=== PATIENT | male | born 1930 | race Caucasian/White ===

== ENCOUNTER 2016-06-25 09:28 | Emergency (ER) | payer MEDICARE, BC ==
[2016-06-25 09:42] VITALS: BP 123/63
--- NOTE | 2016-06-25 09:59 | UC ---
Abdominal Pain Male HPI - HPI Summary HPI Summary: 3 DAYS OF LOWER ABDOMINAL PAIN LLQ>RLQ. NO NAUSEA, NO DIARRHEA. NORMAL BMs. NO BLOOD PER RECTUM. NO FEVER. APPETITE HAS BEEN DECREASED BUT TAKING FLUIDS WELL. - History of Current Complaint Chief Complaint: UCAbdominalPain Stated Complaint: LT ABDOMEN PAIN Time Seen by Provider: 06/25/16 09:46 Hx Obtained From: Patient Onset/Duration: Sudden Onset, Lasting Days, Still Present Timing: Constant Severity Initially: Moderate Severity Currently: Moderate Pain Intensity: 4 Pain Scale Used: 0-10 Numeric Location: Other - LOWER ABDOMEN LLQ>RLQ Radiates: No Character: Aching, Sharp Aggravating Factor(s):: Nothing Alleviating Factor(s): Nothing Associated Signs And Symptoms: Positive: Negative - Allergies/Home Medications Allergies/Adverse Reactions: Allergies Allergy/AdvReac Type Severity Reaction Status Date / Time Sulfa Antibiotics Allergy Severe Swelling Verified 01/04/16 15:09 PMH/Surg Hx/FS Hx/Imm Hx Endocrine History Of: Denies: Diabetes, Thyroid Disease Cardiovascular History Of: Reports: Cardiac Disorders - bypass, CHF, Congestive Heart Failure - Has resolved with aortic valve repair Denies: Hypertension Respiratory History Of: Denies: COPD, Asthma GI/ History Of: Denies: Ulcer, Renal Disease Neurological History Of: Reports: TIA - 20 years ago - Surgical History Surgical History: Yes Surgery Procedure, Year, and Place: 1997 Open heart aortic valve repair - Family History Known Family History: Negative: Cardiac Disease, Hypertension, Diabetes - Social History Alcohol Use: None Substance Use Type: None Smoking Status (MU): Former Smoker Type: Cigarettes When Did the Patient Quit Smoking/Using Tobacco: 1970s - Immunization History Most Recent Influenza Vaccination: Not this season, - Most Recent Tetanus Shot: UNK Most Recent Pneumonia Vaccination: Has had, UNK year Review of Systems Constitutional: Negative Respiratory: Negative Cardiovascular: Negative Gastrointestinal: Abdominal Pain Genitourinary: Negative All Other Systems Reviewed And Are Negative: Yes Physical Exam Triage Information Reviewed: Yes Appearance: Well-Appearing, Pain Distress - MILD, Thin Vital Signs: Initial Vital Signs Temp 98.7 F 06/25/16 09:34 Pulse 107 06/25/16 09:34 Resp 20 06/25/16 09:34 BP 123/63 06/25/16 09:34 Pulse Ox 99 01/18/17 09:34 Vital Signs Reviewed: Yes Eyes: Positive: Conjunctiva Clear ENT: Positive: Hearing grossly normal Neck: Positive: Supple Respiratory Exam: Normal Cardiovascular: Positive: Tachycardia - IRREGULAR Abdomen Description: Positive: Soft, Guarding - VOLUNTARY, Other: - TTP LOWER ABDOMEN LLQ>RLQ. Negative: Distended Bowel Sounds: Positive: Present Musculoskeletal: Positive: No Edema Neurological: Positive: Alert Psychological: Positive: Normal Response To Family, Age Appropriate Behavior Skin: Negative: rashes Abd Pain Male Course/Dx - Course Course Of Treatment: PT STATES IRREGULAR HEART BEAT IS NOT NEW AND IS FOLLOWED BY DR. PAVON. - Differential Dx/Clinical Impression Provider Diagnoses: LLQ PAIN - Physician Notification/Consults Discussed Patient Care With: DONAVON FRENCH Time Discussed With Above Provider: 10:02 Instructed by Provider To: Transfer - [place] [facility] [place] [facility] Discharge - Discharge Plan Condition: Stable Disposition: TRANS HIGHER LVL OF CARE FAC Referrals: Gadiel Pavon MD [Primary Care Provider] -
== END 2016-06-25 10:00 | disposition short-term general hospital (02) ==
LOC: UCEAST 09:28
DX: R10.32 Left lower quadrant pain (principal); Z88.2 Allergy status to sulfonamides; Z87.891 Personal history of nicotine dependence
CPT/HCPCS: 99212; G0463

== ENCOUNTER 2016-06-25 10:22 | Inpatient (IN) | payer MEDICARE, BC ==
[2016-06-25 12:30] LABS: Hematocrit 39 % (42-52); Hemoglobin 12.7 g/dl (14.0-18.0); Mean Corpuscular HGB Conc 33 g/dl (31-36); Mean Corpuscular Hemoglobin 28 pg (27-31); Mean Corpuscular Volume 86 fL (80-94); Mean Platelet Volume 9 um3 (7.4-10.4); Red Blood Count 4.47 10^6/ul (4.0-5.4); Red Cell Distribution Width 15 % (10.5-15); White Blood Count 17.2 10^3/ul (3.5-10.8)
[2016-06-25 12:43] LABS: Troponin I 0.03 ng/mL (<0.04)
[2016-06-25 12:46] LABS: ALT 9 U/L (7-52); AST 9 U/L (13-39); Albumin 3.6 g/dL (3.2-5.2); Alkaline Phosphatase 48 U/L (34-104); Amylase 28 U/L (29-103); Anion Gap 7 mmol/L (2-11); BUN/Creatinine Ratio 20.6 (8-20); Blood Urea Nitrogen 32 mg/dL (6-24); C Reactive Protein 154.93 mg/L (< 5.00); CO2 Carbon Dioxide 24 mmol/L (22-32); Calcium 9.1 mg/dL (8.6-10.3); Chloride 106 mmol/L (101-111); EGFR African American 55.2 (>60); EGFR Non-African American 42.9 (>60); Globulin 2.8 g/dL (2-4); Glucose 122 mg/dL (70-100); Lipase < 10 U/L (11.0-82.0); Potassium 3.7 mmol/L (3.5-5.0); Sodium 137 mmol/L (133-145); Total Protein 6.4 g/dL (6.4-8.9)
[2016-06-25] MEDS ORDERED: NS 0.9% 1000 ML* 1,000 ML IV ONE ×2 (12:55→15:23)
[2016-06-25 14:25] LABS: Urine Bacteria Absent (Absent); Urine Bilirubin Negative (Negative); Urine Glucose Negative (Negative); Urine Nitrite Negative (Negative)
[2016-06-25] MEDS ORDERED: Piperac/Tazob 3.375 gm in NS* 3.375 GM/100 ML BAG IVPB ONE (15:18)
--- NOTE | 2016-06-25 15:20 | RAD ---
INDICATION: LEFT lower quadrant abdominal pain. 5 days duration. COMPARISON: March 02, 2016 CT abdomen. TECHNIQUE: Multidetector CT images were obtained from the lung bases to the ischial tuberosities. Evaluation of the viscera is limited without IV contrast. Multiplanar reformation. REPORT: Moderate LEFT greater than RIGHT dependent basilar atelectasis. Small dependent RIGHT pleural effusion. Moderate sliding-type hiatal hernia. Pectus excavatum deformity. 2.5 x 1.9 cm sharply circumscribed water density cyst at the dome of the LEFT hepatic lobe without change. Additional unchanged hepatic cyst at the caudal margin of the RIGHT hepatic lobe. No CT abnormality of the gallbladder, pancreas, spleen. Aside from the hiatal hernia the upper GI is unremarkable. Enteric contrast extends to the distal sigmoid colon. Severe colonic diverticulosis. Moderately severe neural thickening at the proximal sigmoid colon with significant perienteric inflammatory change including foci of extra enteric gas at the anterior LEFT lower quadrant and a loculated gas and fluid collection at the LEFT para midline anterior LEFT lower quadrant reference axial images centered at 66 and coronal images 21-28 of 88. Associated immediately superior adjacent approximate 10 cm length small bowel mural thickening; reference coronal reformatted images 24-28. While prominent in size and infra cecal appendix is partially opacified with enteric contrast and without evidence for acute inflammatory change. Minimal LEFT lower quadrant ascites. Negative for hernias. Normal adrenal glands. 1 mm nonobstructing stone lower pole LEFT kidney. No suspicious renal lesions or hydronephrosis. Unremarkable nondilated ureters and urinary bladder. Phleboliths noted adjacent to the distal ureters. Prominent prostate with coarse calcification. Grossly symmetric seminal vesicles. Negative for lymphadenopathy. Calcific atherosclerotic plaque of ectatic abdominal aorta without aneurysm by size criteria. Polyarticular degenerative arthropathy. No suspicious focal osseous lesions evident. IMPRESSION: The constellation of findings is most consistent with acute sigmoid diverticulitis with perforation and early perienteric abscess as well as associated reactive inflammation of an adjacent small bowel loop. No resulting bowel obstruction. Follow-up after therapy warranted to assess for resolution of the small bowel mural thickening and exclude an underlying colonic or small bowel neoplastic lesion. Results discussed with Dr. Rizvi 06/25/2016 3:16 PM EST
--- NOTE | 2016-06-25 15:46 | ED ---
Garrett Asencio Anna, scribed for Armando Rizvi MD on 06/25/16 at 1215 . Abdominal Pain/Male - HPI Summary HPI Summary: Patient is an 86 y/o male coming to [facility] presenting with intermittent, left lower abdominal pain that began three days ago at 17:00. He describes the severity of the pain as 4/10. Denies n/v/d, fever, chills. He has had some constipation and has been taking Metamucil for that. The pain is exacerbated by movement. In February he had blood in his GI tract. He denies blood thinners except Aspirin. - History of Current Complaint Chief Complaint: EDAbdPain Stated Complaint: ABD PAIN Time Seen by Provider: 06/25/16 10:28 Hx Obtained From: Patient Onset/Duration: Lasting Days, Still Present Timing: Intermittent Severity Initially: Moderate Severity Currently: Moderate Pain Intensity: 4 Pain Scale Used: 0-10 Numeric - Allergies/Home Medications Allergies/Adverse Reactions: Allergies Allergy/AdvReac Type Severity Reaction Status Date / Time Sulfa Antibiotics Allergy Severe Swelling Verified 06/25/16 10:27 Home Medications: Home Medications Calcium Carbonate-Vitamin D [Calcium 600+D] 1 tab PO DAILY 06/25/16 [History Confirmed 06/25/16] Furosemide TAB* [Lasix TAB*] 20 mg PO EVERY OTHER DAY 06/25/16 [History Confirmed 06/25/16] Indomethacin CAP* [Indocin CAP*] 50 mg PO BID PRN 06/25/16 [History Confirmed ] Pravastatin (NF) [Pravachol (NF)] 40 mg PO BEDTIME 06/25/16 [History Confirmed 06/25/16] PMH/Surg Hx/FS Hx/Imm Hx Endocrine/Hematology History: Denies: Hx Diabetes, Hx Thyroid Disease Cardiovascular History: Reports: Hx Congestive Heart Failure - Has resolved with aortic valve repair, Hx Coronary Artery Disease, Hx Hypotension, Hx Valvular Heart Disease, Other Cardiovascular Problems/Disorders - Open heart surgery for aortic valve repair Denies: Hx Hypertension Respiratory History: Denies: Hx Asthma, Hx Chronic Obstructive Pulmonary Disease (COPD) GI History: Reports: Hx Gastroesophageal Reflux Disease, Other GI Disorders - Denis's esophagus, 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 Denies: Hx Ulcer History: Reports: Hx Benign Prostatic Hyperplasia Denies: Hx Dialysis, Hx Renal Disease Sensory History: Reports: Hx Contacts or Glasses, Hx Hearing Aid, Hx Hearing Problem Opthamlomology History: Reports: Hx Contacts or Glasses Neurological History: Reports: Hx Transient Ischemic Attacks (TIA) - 20 years ago - Surgical History Surgery Procedure, Year, and Place: 1997 Open heart aortic valve repair Hx Anesthesia Reactions: No Infectious Disease History: No Infectious Disease History: Reports: Hx Shingles Denies: Hx Hepatitis, Hx Human Immunodeficiency Virus (HIV), History Other Infectious Disease, Traveled Outside the [place] in Last 30 Days - Family History Known Family History: Negative: Cardiac Disease, Hypertension, Diabetes - Social History Occupation: Retired Lives: With Family Alcohol Use: None Substance Use Type: Reports: None Smoking Status (MU): Former Smoker Type: Cigarettes Review of Systems Positive: Abdominal Pain Positive: other - constipation All Other Systems Reviewed And Are Negative: Yes Physical Exam - Summary Physical Exam Summary: VITAL SIGNS: Reviewed. GENERAL: Patient is a well developed and nourished male who is lying comfortable in the stretcher. Patient is not in any acute respiratory distress. HEAD AND FACE: Normocephalic and atraumatic. EYES: PERRLA, EOMI x 2, No injected conjunctiva. EARS: Hearing grossly intact. Ear canals and tympanic membranes are WNL. MOUTH: Dry oral mucosa. NECK: Supple, trachea is midline, no adenopathy, no JVD. CHEST: Symmetric, no tenderness at palpation LUNGS: Clear to auscultation bilaterally. No wheezing or crackles. CVS: RRR,, S1 and S2 present, no murmurs or gallops appreciated. ABDOMEN: Soft, positive RLQ tenderness. No signs of distention. Positive bowel sounds. No rebound no guarding, and no masses palpated. No abdominal bruit or pulsations. EXTREMITIES: FROM in all major joints, no edema, no cyanosis or clubbing. NEURO: Alert and oriented x 3. No acute neurological deficits. Speech is normal. SKIN: Dry and warm Vital Signs On Initial Exam: Initial Vitals Temp Pulse Resp BP Pulse Ox 98.6 F 105 16 111/59 98 06/25/16 10:27 06/25/16 10:27 06/25/16 10:27 06/25/16 10:27 06/25/16 10:27 Diagnostics - Vital Signs Vital Signs Temp Pulse Resp BP Pulse Ox 06/25/16 10:27 98.6 F 105 16 111/59 98 - Laboratory Lab Results: Lab Results 06/25/16 Range/Units 11:25 WBC 17.2 H (3.5-10.8) 10^3/ul RBC 4.47 (4.0-5.4) 10^6/ul Hgb 12.7 L (14.0-18.0) g/dl Hct 39 L (42-52) % MCV 86 (80-94) fL MCH 28 (27-31) pg MCHC 33 (31-36) g/dl RDW 15 (10.5-15) % Plt Count 168 (150-450) 10^3/ul MPV 9 (7.4-10.4) um3 Neut % (Auto) 89.5 H (38-83) % Lymph % (Auto) 3.6 L (25-47) % [place] % (Auto) 6.5 (1-9) % Eos % (Auto) 0.1 (0-6) % Baso % (Auto) 0.3 (0-2) % Absolute Neuts (auto) 15.4 H (1.5-7.7) 10^3/ul Absolute Lymphs (auto) 0.6 L (1.0-4.8) 10^3/ul Absolute Monos (auto) 1.1 H (0-0.8) 10^3/ul Absolute Eos (auto) 0 (0-0.6) 10^3/ul Absolute Basos (auto) 0.1 (0-0.2) 10^3/ul Absolute Nucleated RBC 0 10^3/ul Nucleated RBC % 0 Result Diagrams: 06/25/16 11:25 06/25/16 11:25 Lab Statement: Any lab studies that have been ordered have been reviewed, and results considered in the medical decision making process. - CT CT abd/pel CT Interpretation: Positive (See Comments) CT Interpretation Completed By: Radiologist - IMPRESSION: The constellation of findings is most consistent with acute sigmoid diverticulitis with perforation and early perienteric abscess as well as associated reactive inflammation of an adjacent small bowel loop. No resulting bowel obstruction. Follow-up after therapy warranted to assess for resolution of the small bowel mural thickening and exclude an underlying colonic or small bowel neoplastic lesion. Results discussed with Dr. Rizvi 06/25/2016 3:16 PM EST - EKG 12:18 Cardiac Rate: NL - 99 bpm EKG Rhythm: Sinus Rhythm EKG Interpretation: No S/T elevation Abdominal Pain Fem Course/Dx - Course Assessment/Plan: Patient is an 86 y/o male coming to [facility] presenting with intermittent, left lower abdominal pain that began three days ago at 17:00. He describes the severity of the pain as 4/10. Denies n/v/d, fever, chills. He has had some constipation and has been taking Metamucil for that. The pain is exacerbated by movement. In February he had blood in his GI tract. He denies blood thinners except Aspirin. Blood work shows a WBCs of 17.2, chronic anemia , acute on chronic renal failure and increased CRP. Initially he was given IV fluid since he appears to be dry. Abdominal and pelvic CT impression: IMPRESSION: The constellation of findings is most consistent with acute sigmoid. diverticulitis with perforation and early perinephric abscess as well as associated. reactive inflammation of an adjacent small bowel loop. No resulting bowel obstruction. Follow-up after therapy warranted to assess for resolution of the small bowel mural thickening and exclude an underlying colonic or small bowel neoplastic lesion. In the ED course he was given approximately 2 liter of fluids. He was started in Zosyn. I discussed the case with Dr. Hawkins from surgery and he will consult for the patient. He also recommends admission to the hospitalist and contact IR for a possible percutaneous drainage of the abscess. I spoke with Dr. Clinton form Radiology and he will consult with IR . I discuss my physical exam, findings and test results with Dr. Anderson from the hospitalist services and she agrees to admit patient to his services. Patient is hemodynamically stable alert and oriented x 3. - Diagnoses Differential Diagnosis/HQI/PQRI: Bowel Obstruction, Constipation, Diverticulitis , Renal Colic, Urinary Tract Infection Provider Diagnoses: Diverticulitis of intestine with perforation and abscess - Provider Notifications Discussed Care Of Patient With: Dr. Boswell (radiologist) at 15:16. Patient has perforated diverticulitis with an abscess. Dr. Hawkins (surgeon) at 15:21. Dr. Hawkins will consult and wants to talk Dr. Boswell to see about drainage. Discharge - Discharge Plan Condition: Stable Disposition: ADMITTED TO [facility] Referrals: Gadiel Jennings MD [Primary Care Provider] - The documentation as recorded by the Garrett welsh Anna accurately reflects the service I personally performed and the decisions made by me, Armando Rizvi MD.
[2016-06-25] MEDS ORDERED: Morphine INJ* 2 MG/ML 1 ML CARPUJECT IV PRN (16:52)
[2016-06-25] MEDS: oxyCODONE/Acetamin 5/325 MG* TAB PO PRN (19:51)
--- NOTE | 2016-06-25 20:22 | CONS ---
CONSULTATION REPORT: DATE OF CONSULT: 06/25/16 REFERRING PROVIDER: DONAVON Peters, hospitalist, and Dr. Rizvi, emergency room physician. LOCATION: The patient was seen in the emergency room at [facility]. CHIEF COMPLAINT: Left lower quadrant abdominal pain. HISTORY OF PRESENT ILLNESS: Mr. John German is a very pleasant 86-year-old gentleman, who is a resident of [facility] who since Thursday has been having worsening left lower quadrant abdominal discomfort. He has been getting around well, has had somewhat of a poor appetite, but keeping liquids down. He has had no nausea, vomiting, fever, shakes, or chills. He had some bowel movements and he has also been urinating. He was not able to get a nurse practitioner visit until tomorrow, but the pain worsened and he had initially gone to [facility] today, was referred to the emergency room after being seen there for further care. In the emergency room, he was noted to be afebrile. Did have heart rate slightly over 100, but was hemodynamically stable, awake, alert, and in no apparent distress. He was noted to have tenderness in the left lower quadrant but no generalized peritonitis and there was fullness as well in this area. Laboratory workup included white blood cell count of 17,000 with a slight left shift. BUN and creatinine were 32 and 1.5, but he had a lactic acid 1.1 with a C- reactive protein of 154. He did undergo a CT scan of the abdomen and pelvis. I have reviewed these images and this has also been discussed with Dr. Armando Boswell from Radiology. This shows multiple diverticula throughout the entire colon, but mainly in the sigmoid and distal descending colon. There are findings consistent with sigmoid diverticulitis with what appears to be most likely a contained perforation with abscess, which is anterior just underneath the abdominal wall. There is no what appears to be free extraluminal air, significant amount of free fluid, or other acute findings other than a hepatic cyst. The patient is now being admitted to the hospitalist service and started on IV antibiotics. Surgical consultation was obtained. PAST MEDICAL HISTORY: 1. Coronary artery disease. 2. Recent gastrointestinal bleeding; this was presumed to be diverticula. He was admitted in January to [facility] and underwent extensive workup for his. 3. Prostatism. 4. Hyperlipidemia. PAST SURGICAL HISTORY: 1. Bilateral open inguinal hernia repairs. 2. Coronary artery bypass grafting. MEDICATIONS: Medicines on admission include: 1. Calcium. 2. Pravachol 40 mg daily. 3. Hytrin 5 mg q.h.s. 4. Indomethacin. 5. Lasix 20 mg every other day. ALLERGIES: To SULFA. SOCIAL HISTORY: He lives alone at [facility]. He does drink alcohol, or tobacco. REVIEW OF SYSTEMS: Cerebrovascular: He has no dizziness or visual disturbance. Cardiovascular: No chest pain, shortness of breath. Pulmonary: No wheezing or hemoptysis. GI: As per above. He was admitted in January and February and underwent extensive workup for apparently quite significant GI bleeding, which was felt to be secondary to diverticula. At that time, he received over 9 units of blood during his hospitalization. Upper endoscopy was unremarkable. He had multiple pancolonic diverticula, unknown source of bleeding. Two bleeding scans were unremarkable. He has not had bleeding since , but he has reduced the amount of aspirin that he takes, but he is not taking any further aspirin. He has never been on any blood thinners. : No urgency or hematuria. PHYSICAL EXAM: Heart rate is about 90, blood pressure 111/59, respirations 16, temperature 98.6. Generally, he is a well-developed slender male, very pleasant appears to be in no apparent distress. Awake, alert, conversive. HEENT: His sclerae are anicteric. Oral mucosa is slightly dry. Neck shows no adenopathy. Lungs: Clear to auscultation with normal respiratory effort. Heart with regular rate and rhythm without murmurs, rubs, or gallops. Abdomen: Soft and nondistended. He had diminished bowel sounds throughout but they are not high pitched or tinkling. He has well-healed bilateral left and right groin incisions from previous hernia. There is no organomegaly noted. He has tenderness with also firm fullness in the left lower quadrant of the abdomen which is tender. This does not show any peritoneal signs. He has no generalized peritonitis. He has some mild tenderness in the right lower quadrant as well. Psychiatric: He is awake, alert, and oriented x3. He has normal judgment and insight. IMPRESSION: 1. Sigmoid diverticulitis with an apparent contained perforation with what appears to be developing abscess just anterior to the descending colon, sigmoid colon junction. There is no free extraluminal air fluid and he has no signs of peritonitis. He does have a significant leukocytosis but he does not appear to be septic. 2. Recent history of gastrointestinal bleed which was apparently diverticula. No specific bleeding site was found, however, on two bleeding scans and a colonoscopy, and there was not felt to be an upper source. He has not had bleeding since January. He had alvarado-diverticula noted on the colonoscopy. 3. Coronary artery disease. 4. Congestive heart failure. 4. History of benign prostatic hypertrophy. PLAN: 1. The patient is going to be admitted to the hospitalist service. 2. He will be started on IV Zosyn. 3. We can start IV fluids and kept n.p.o. 4. We have reviewed the study with Dr. Boswell from Interventional Radiology. This appears most likely to be an abscess, which would benefit from percutaneous drainage and certainly appears to be amenable to discharge. Dr. Boswell would like to reevaluate and Dr. Boswell is going to schedule and plan this for tomorrow, most likely with CT-guided assistance and a repeat CT scan may be performed to further evaluate the location prior to deciding on abscess drainage. 5. In addition, I discussed the possible scenarios in terms of treatment and hospital stay. If this improves with percutaneous drainage and intravenous antibiotics, he could be discharged home on oral antibiotics with close followup. Certainly, if there is worsening in his physical exam, clinical situation, or develop sepsis, peritonitis, or does not respond to antibiotics and percutaneous drainage, this would require urgent/emergent operation with colon resection and most likely a colostomy. Thank you for this consultation. We will follow him closely with you. CC: [facility]; Jackelyn Goins * [id number]/[facility] #: [id number] [facility]NERS[facility]
--- NOTE | 2016-06-25 20:30 | HP ---
ADMISSION HISTORY AND PHYSICAL: DATE OF ADMISSION: 06/25/16 PRIMARY CARE PROVIDER: Dr. Gadiel Jennings. ADMITTING PROVIDER: DONAVON Mendiola SUPERVISING PHYSICIAN: Dr. Russel Anderson.* (DICTATED BY DONAVON MENDIOLA) CHIEF COMPLAINT: Abdominal pain. HISTORY OF PRESENT ILLNESS: This is an 86-year-old gentleman with a history of coronary artery disease, status post CABG as well as chronic kidney disease and BPH who presented with complaints of left lower quadrant abdominal pain for the last 3 to 4 days. He has not had any associated vomiting or diarrhea. He states that he has had normal bowel movements without blood during the time of pain. He reported pain was with motion and at rest and seemed to be worse over the last several days, which prompted him to seek emergency care. He had been afebrile at home without associated chills, some loss of appetite, but really no other complaints. The patient was admitted in February with a lower GI bleed. Colonoscopy was unrevealing and he had 2 bleeding scans done at that time that did not demonstrate a source of bleeding. He has had no further bloody bowel movements since that time. He has been maintained on aspirin at home. PAST MEDICAL HISTORY: 1. Coronary artery disease, status post CABG. 2. Stage 3 chronic kidney disease. 3. BPH. 4. Olson's esophagus. PAST SURGICAL HISTORY: CABG. HOME MEDICATIONS: 1. Calcium carbonate and vitamin D 1 tablet p.o. daily. 2. Lasix 20 mg p.o. every other day. 3. Indomethacin 50 mg p.o. b.i.d. as needed. 4. Pravastatin 40 mg p.o. at bedtime. 5. Terazosin 5 mg p.o. at bedtime. SOCIAL HISTORY: The patient [place] [facility]. He is a former smoker with approximately [id number] smoking history. Denies regular alcohol consumption. The patient is quite active at baseline. REVIEW OF SYSTEMS: As noted above in HPI. Otherwise negative. He specifically denies any chest pain or shortness of breath. No palpitations. He has no pain with exertion and his exercise tolerance is excellent. PHYSICAL EXAMINATION GENERAL: This is a very pleasant elderly male, in no acute distress, lying comfortably on a hospital stretcher. VITAL SIGNS: Temperature 98.6 degrees Fahrenheit, pulse 105 beats per minute, respiratory rate 16, oxygen saturation 98% on room air, and blood pressure 111/ 59 mmHg. HEENT: Head is normocephalic and atraumatic with moist mucous membranes. RESPIRATORY: Lungs are clear to auscultation without wheezes, crackles, or rhonchi. CARDIOVASCULAR: Heart has a regular rate and rhythm without murmurs, rubs, or gallops. ABDOMEN: Soft with bowel sounds present. He does have a palpable mass in the left lower quadrant, which is significantly tender to palpation. The remainder of his abdomen is nontender. PSYCH: The patient is alert and appropriately oriented. SKIN: Limited exam shows no concerning rashes or lesions. LABORATORY EVALUATION: CBC shows a white blood cell count of 17,200, hemoglobin of 12.7 g/dL, platelet count of 168,000. Comprehensive metabolic panel shows a normal sodium of 137 mmol/L, potassium 3.7 mmol/L, BUN of 32 with a creatinine of 1.55 and estimated GFR of 43. Random glucose 122 mg/dL. Transaminases and total bilirubin within normal limits. Troponin negative at 0.03. CRP elevated at 154. Amylase and lipase are both negative. Urinalysis is positive for protein and trace ketones. Otherwise negative. IMAGING: CT of the abdomen and pelvis shows a sigmoid diverticulitis with associated perforation and early abscess formation. EKG shows a normal sinus rhythm. ASSESSMENT AND PLAN: This is an 86-year-old gentleman with a history of chronic kidney disease, coronary artery disease, status post coronary artery bypass grafting, who presents with left lower quadrant abdominal pain, noted diverticulitis and associated perforation on CT. The patient is admitted for appropriate management. Surgeon, Dr. Noam Goncalves, is consulting. 1. Acute diverticulitis with associated perforation, but without generalized peritonitis - Dr. Noam Goncalves has seen and examined this patient. He recommends that surgical intervention is not necessary at this time. He received a dose of Zosyn in the emergency department which will be continued for him. We will plan for percutaneous drain placement of the abscess tomorrow afternoon. Of course, if the patient has any signs of clinical deterioration, the next step will be surgical intervention. There are no signs of obstruction on exam or imaging. 2. History of coronary artery disease, status post CABG - the patient is asymptomatic. There is no echocardiogram available for review. EKG is within normal limits. The patient is able to climb a flight of stairs without symptoms. No clinical signs of heart failure. 3. Chronic kidney disease: The patient is near baseline with an estimated GFR of approximately 40. 4. Benign prostatic hypertrophy - the patient is currently treated with terazosin, which will be held at this time in the presence of infection and little oral intake. We will monitor for signs of urinary obstruction and can reinitiate terazosin as tolerated. 5. Code status: The patient is a full code. 6. Healthcare proxy is listed as his daughter, Jazmine Pace. 7. DVT prophylaxis - the patient is at moderate to high risk for deep venous thrombosis and will be placed on Lovenox 40 mg subcu daily for prophylaxis, this will be held at this time in anticipation of drain placement percutaneously tomorrow and we will plan on initiating first dose tomorrow afternoon. DISPOSITION: The patient is being admitted to the inpatient status with anticipated length of stay of greater than 2 days. DONAVON MENDIOLA CC: Dr. Gadiel Jennings * [id number]/[facility] #: [id number] MTDRosita
[2016-06-25] MEDS: Atorvastatin* 10 MG TAB PO SCH (21:04)
[2016-06-25] MEDS: Piperac/Tazob 3.375 gm in NS* 3.375 GM/100 ML BAG IVPB SCH (21:06)
[2016-06-25] MEDS: Terazosin CAP* 5 MG PO SCH (22:12)
[2016-06-26] MEDS: Piperac/Tazob 3.375 gm in NS* 3.375 GM/100 ML BAG IVPB SCH ×3 (03:51→19:48)
[2016-06-26 05:31] LABS: Hematocrit 35 % (42-52); Hemoglobin 11.3 g/dl (14.0-18.0); Mean Corpuscular HGB Conc 32 g/dl (31-36); Mean Corpuscular Hemoglobin 28 pg (27-31); Mean Corpuscular Volume 88 fL (80-94); Mean Platelet Volume 8 um3 (7.4-10.4); Red Blood Count 3.98 10^6/ul (4.0-5.4); Red Cell Distribution Width 15 % (10.5-15)
[2016-06-26 05:47] LABS: Calcium 8.1 mg/dL (8.6-10.3); EGFR African American 68.9 (>60); EGFR Non-African American 53.5 (>60); Potassium 3.7 mmol/L (3.5-5.0)
[2016-06-26] MEDS: oxyCODONE/Acetamin 5/325 MG* TAB PO PRN (09:05)
[2016-06-26] MEDS ORDERED: fentaNYL* 50 MCG/ML 2 ML VIAL (100 MCG VIAL) ONE ×2 (12:43→14:16)
[2016-06-26] MEDS ORDERED: HYDROmorphone INJ* 1 MG/ML CARPUJECT SYRINGE IV SLOW PU ONE ×3 (15:15→16:00)
--- NOTE | 2016-06-26 15:18 | PN ---
Subjective Date of Service: 06/26/16 Interval History: Patient seen and examined at bedside this AM. He reports adequate pain control prior to his drain placement. He denies chest pain, SOB, n/v. His abd pain is controlled at this time. He does report concern for leg swelling, as this happened last time he was in the hospital. No significant swelling noted at this time - he states his legs "look normal." He does not like [place] stockings because they "cut into his legs too much." Family History: Unchanged from Admission Social History: Unchanged from Admission Past Medical History: Unchanged from Admission Objective Active Medications: Acetaminophen (Tylenol Tab*) 650 mg PO Q4H PRN PRN Reason: FEVER/PAIN Atorvastatin Calcium (Lipitor*) 10 mg PO BEDTIME WESLEY PRN Reason: Protocol Last Admin: 06/25/16 21:04 Dose: 10 mg Enoxaparin Sodium (Lovenox(*)) 40 mg SUBCUT Q24H [facility] Piperacillin Sod/Tazobactam Sod (Zosyn 3.375 Gm In Ns Premix*) 3.375 gm in 100 mls @ 25 mls/hr IVPB Q8H [facility] Last Admin: 06/26/16 03:51 Dose: 25 mls/hr Lactated Ringer's (Lactated Ringers 1000 Ml Bag*) 1,000 mls @ 75 mls/hr IV PER RATE [facility] Last Admin: 06/25/16 19:51 Dose: 75 mls/hr Morphine Sulfate (Morphine Inj (Syringe)*) 2 mg IV Q4H PRN PRN Reason: PAIN Oxycodone/Acetaminophen (Percocet 5/325 Tab*) 1 tab PO Q4H PRN PRN Reason: Pain Last Admin: 06/26/16 09:05 Dose: 1 tab Terazosin HCl (Hytrin Cap*) 5 mg PO BEDTIME [facility] Last Admin: 06/25/16 22:12 Dose: 5 mg Vital Signs 06/25/16 06/25/16 06/25/16 19:39 19:51 20:00 Temperature 100.4 F Pulse Rate 109 Respiratory 16 16 16 Rate Blood Pressure 103/56 (mmHg) O2 Sat by Pulse 97 Oximetry 06/25/16 06/25/16 06/25/16 20:15 21:51 23:50 Temperature 100.4 F 97.4 F Pulse Rate 109 84 Respiratory 16 16 18 Rate Blood Pressure 103/56 100/61 (mmHg) O2 Sat by Pulse 97 96 Oximetry 06/26/16 06/26/16 06/26/16 01:02 03:54 07:02 Temperature 98.3 F 98.8 F Pulse Rate 69 68 Respiratory 16 18 18 Rate Blood Pressure 99/60 105/53 (mmHg) O2 Sat by Pulse 95 95 Oximetry 06/26/16 06/26/16 06/26/16 08:00 09:05 11:05 Temperature Pulse Rate Respiratory 18 18 18 Rate Blood Pressure (mmHg) O2 Sat by Pulse Oximetry Oxygen Devices in Use Now: None Appearance: Older male patient, lying in bed, in NAD Eyes: PERRLA Ears/Nose/Mouth/Throat: Clear Oropharnyx, Mucous Membranes Moist Neck: NL Appearance and Movements; NL JVP Respiratory: Symmetrical Chest Expansion and Respiratory Effort, Clear to Auscultation Cardiovascular: NL Sounds; No Murmurs; No JVD, RRR Abdominal: NL Sounds; No Tenderness; No Distention - diffuse abdominal tenderness with palpation Extremities: No Clubbing, Cyanosis - trace LE edema Skin: No Rash or Ulcers Neurological: Alert and Oriented x 3 Lines/Tubes/Other Access: Clean, Dry and Intact Peripheral IV Nutrition: Taking PO's - clear liquids Result Diagrams: 06/26/16 05:04 06/26/16 05:04 Additional Lab and Data: Lab Results 06/25/16 Range/Units 11:25 WBC 17.2 H (3.5-10.8) 10^3/ul RBC 4.47 (4.0-5.4) 10^6/ul Hgb 12.7 L (14.0-18.0) g/dl Hct 39 L (42-52) % MCV 86 (80-94) fL MCH 28 (27-31) pg MCHC 33 (31-36) g/dl RDW 15 (10.5-15) % Plt Count 168 (150-450) 10^3/ul MPV 9 (7.4-10.4) um3 Neut % (Auto) 89.5 H (38-83) % Lymph % (Auto) 3.6 L (25-47) % [place] % (Auto) 6.5 (1-9) % Eos % (Auto) 0.1 (0-6) % Baso % (Auto) 0.3 (0-2) % Absolute Neuts (auto) 15.4 H (1.5-7.7) 10^3/ul Absolute Lymphs (auto) 0.6 L (1.0-4.8) 10^3/ul Absolute Monos (auto) 1.1 H (0-0.8) 10^3/ul Absolute Eos (auto) 0 (0-0.6) 10^3/ul Absolute Basos (auto) 0.1 (0-0.2) 10^3/ul Absolute Nucleated RBC 0 10^3/ul Nucleated RBC % 0 Microbiology and Other Data: Microbiology 06/25/16 22:20 Nasal Screen MRSA (PCR)(NOBLE) - Final Nasal Mrsa Positive Assess/Plan/Problems-Billing Assessment: Mr. German is an 86 yo male with a PMH of CAD, stage 3 CKD, BPH, and Olson's esophagus who presented to the ED on 06/25/16 with abdominal pain that was found to be secondary to diverticulitis with associated perforation and early abscess. - Patient Problems (1) Diverticulitis of colon with perforation Code(s): K57.20 - DVTRCLI OF LG INT W PERFORATION AND ABSCESS W/O BLEEDING Comment: Plan for percutaneous drain placement today Appreciate surgical input Continue Zosyn and monitor closely for decompensation (2) CAD (coronary artery disease) Code(s): I25.10 - ATHSCL HEART DISEASE OF [place] CORONARY ARTERY W/O ANG PCTRS Comment: Stable. Continue statin. (3) CKD (chronic kidney disease) stage 3, GFR 30-59 ml/min Code(s): N18.3 - CHRONIC KIDNEY DISEASE, STAGE 3 (MODERATE) Comment: Creatinine within baseline. (4) BPH (benign prostatic hyperplasia) Code(s): N40.0 - BENIGN PROSTATIC HYPERPLASIA WITHOUT LOWER URINRY TRACT SYMP Comment: Patient with difficulty urinating last evening, terazosin restarted. Closely monitor BP in the presence of acute infection. (5) DVT prophylaxis Code(s): TKG0269 - Comment: SQ Lovenox Status and Disposition: Inpatient admission. Anticipate LOS >2 days.
[2016-06-26] MEDS ORDERED: NS 0.9% 1000 ML* 2,000 ML IV ONE (15:46)
--- NOTE | 2016-06-26 16:06 | PN ---
Progress Note - Progress Note Note: Surgery Progress: S: patient seen ~ 1530, recently back from Xray for image-guided drainage of abscess. This was apparently a very uncomfortable procedure for him and at present he is c/o severe spasms of lower abd pain (worse than last night or this a.m.). Along with this he is very tachycardic and about to get an EKG and re-evaluation by the hospitalist. O: Vital Signs - 8 hr 06/26/16 06/26/16 06/26/16 09:05 11:05 15:36 Temperature Pulse Rate Respiratory 18 18 24 Rate Blood Pressure (mmHg) O2 Sat by Pulse Oximetry 06/26/16 15:39 Temperature 97.8 F Pulse Rate 144 Respiratory 26 Rate Blood Pressure 142/76 (mmHg) O2 Sat by Pulse 97 Oximetry Heart: tachy Lungs: clear Abd: +BS; percutaneous drain in place w/ scant cloudy serosang drainage; abd is soft w/ moderate tenderness in LLQ, though patient's exam is difficult as he is unable to relax. A: diverticulitis w/ abscess, now s/p perc drainage w/ increased pain and tachycardia P: cont IV Zosyn; pain medication as needed; EKG pend; frequent re-checks; possible re-scan if no improvement, or consideration of operative intervention ( Dr. Goncalves aware of current situation).
[2016-06-26] MEDS: Enoxaparin(*) 40 MG/0.4 ML SYR SUBCUT SCH (16:19)
--- NOTE | 2016-06-26 17:44 | RAD ---
INDICATION: Superficial LEFT para midline suprapubic infraumbilical early peritoneal abscess secondary to sigmoid diverticulitis documented on June 25, 2016 CT. Image guided abscess drainage requested. COMPARISON: June 25, 2016 CT. Written informed consent obtained. Timeout performed. PROCEDURE: 3 cm AP by 5 cm transverse gas and liquid containing abscess collection identified in the LEFT paramedian supravesicular anterior pelvis with mild interval enlargement compared with the CT of one day prior. The collection is bordered by the inflamed sigmoid colon LEFT lateral and a secondarily inflamed small bowel loop over the cephalad margin. Collection definitively identified with ultrasound based on CT correlation. Following routine aseptic skin prep the subcutaneous and skeletal muscle tissue planes superficial to the collection were anesthetized with 5 mL 1% lidocaine. Through a small skin neck a micropuncture set was introduced into the collection under ultrasound guidance. Tract dilated and wire exchanged for an .035 guidewire. Following serial dilatation a 10 [place] 25 cm pigtail drainage catheter was introduced into the abscess cavity over the guidewire. Initial scant volume of purulent liquid aspirated. Immediate subsequent CT through the region documented the catheter extending posteriorly through the fat adjacent to the sigmoid colon up to 2.5 cm posterior and medial to the deep margin of the collection. The catheter was incrementally withdrawn under CT fluoroscopy such that the final image documents the pigtail within the dominant portion of the abscess cavity. 20 mL purulent beige pus aspirated. The catheter was tethered to the skin with a suture and connected to a gravity drainage bag. Post procedure CT images document the pigtail catheter in expected location with significant decompression of the abscess cavity. Reference axial images 24-27 of 54 a punctate focus of extra enteric gas along with a anterolateral to posterior medial faint mildly hyperdense tract are identified corresponding with the course of the catheter through the pelvic fat prior to final repositioning as described above. No postprocedure soft tissue plane hematoma or peritoneal hemorrhage evident. The patient had significant discomfort on palpation prior to initiation of the invasive procedure and required IV analgesics during and after the procedure due to pain as documented in the nursing record. Additionally the patient became tachycardic during the procedure. Aspirated abscess contents sent to the lab for analysis. Results of procedure and need for analgesic therapy discussed with AMADOR Juárez from the hospitalist service. After approximate one hour of observation the patient was discharged from the imaging department to the hospitalist service. IMPRESSION: Successful CT and ultrasound guided anterior LEFT lower quadrant peritoneal abscess pigtail catheter drainage.
[2016-06-26] MEDS: Atorvastatin* 10 MG TAB PO SCH (20:41)
[2016-06-26] MEDS: Terazosin CAP* 5 MG PO SCH (20:41)
[2016-06-27] MEDS: Piperac/Tazob 3.375 gm in NS* 3.375 GM/100 ML BAG IVPB SCH ×3 (03:26→21:25)
[2016-06-27 05:36] LABS: Hematocrit 35 % (42-52); Hemoglobin 11.4 g/dl (14.0-18.0); Mean Corpuscular HGB Conc 33 g/dl (31-36); Mean Corpuscular Hemoglobin 28 pg (27-31); Mean Corpuscular Volume 87 fL (80-94); Mean Platelet Volume 8 um3 (7.4-10.4); Red Blood Count 4.07 10^6/ul (4.0-5.4); Red Cell Distribution Width 15 % (10.5-15); White Blood Count 11.3 10^3/ul (3.5-10.8)
[2016-06-27 05:41] LABS: Add Diff/Slide Review? Slide Review Added; Comments Flag Yes
[2016-06-27 05:45] LABS: BUN/Creatinine Ratio 16.1 (8-20); Calcium 7.9 mg/dL (8.6-10.3); EGFR African American 63.7 (>60); EGFR Non-African American 49.5 (>60); Potassium 3.7 mmol/L (3.5-5.0)
--- NOTE | 2016-06-27 10:32 | PN ---
Subjective Date of Service: 06/27/16 Interval History: Patient seen and examined at bedside. He is sitting on the edge of the bed, trying to figure out his new phone. He states his pain has been "okay" but then reports that he experiences sudden stabs of pain to his left side that come and go. He denies CP, SOB, n/v. Tolerating clear liquids. No new nursing concerns at this time. Family History: Unchanged from Admission Social History: Unchanged from Admission Past Medical History: Unchanged from Admission Objective Active Medications: Acetaminophen (Tylenol Tab*) 650 mg PO Q4H PRN PRN Reason: FEVER/PAIN Atorvastatin Calcium (Lipitor*) 10 mg PO BEDTIME [facility] PRN Reason: Protocol Last Admin: 06/26/16 20:41 Dose: 10 mg Enoxaparin Sodium (Lovenox(*)) 40 mg SUBCUT Q24H [facility] Last Admin: 06/26/16 16:19 Dose: Not Given Piperacillin Sod/Tazobactam Sod (Zosyn 3.375 Gm In Ns Premix*) 3.375 gm in 100 mls @ 25 mls/hr IVPB Q8H [facility] Last Admin: 06/27/16 03:26 Dose: 25 mls/hr Lactated Ringer's (Lactated Ringers 1000 Ml Bag*) 1,000 mls @ 100 mls/hr IV PER RATE [facility] Sodium Chloride (Ns 0.9% 500 Ml Bag*) 500 mls @ 1,000 mls/hr IV .BOLUS [facility] Morphine Sulfate (Morphine Inj (Syringe)*) 2 mg IV Q4H PRN PRN Reason: PAIN Oxycodone/Acetaminophen (Percocet 5/325 Tab*) 1 tab PO Q4H PRN PRN Reason: Pain Last Admin: 06/26/16 09:05 Dose: 1 tab Terazosin HCl (Hytrin Cap*) 5 mg PO BEDTIME [facility] Last Admin: 06/26/16 20:41 Dose: 5 mg Vital Signs 06/26/16 06/26/16 06/26/16 11:05 15:36 15:39 Temperature 97.8 F Pulse Rate 144 Respiratory 18 24 26 Rate Blood Pressure 142/76 (mmHg) O2 Sat by Pulse 97 Oximetry 06/26/16 06/26/16 06/26/16 16:36 16:38 17:36 Temperature Pulse Rate 114 Respiratory 18 18 Rate Blood Pressure (mmHg) O2 Sat by Pulse Oximetry 06/26/16 06/26/16 06/26/16 18:36 20:00 23:10 Temperature 97.8 F Pulse Rate 93 Respiratory 18 18 18 Rate Blood Pressure 95/53 (mmHg) O2 Sat by Pulse 97 Oximetry Oxygen Devices in Use Now: None Appearance: Older male patient, sitting on edge of bed, in NAD Eyes: PERRLA Ears/Nose/Mouth/Throat: Clear Oropharnyx Neck: NL Appearance and Movements; NL JVP Respiratory: Symmetrical Chest Expansion and Respiratory Effort, Clear to Auscultation Cardiovascular: NL Sounds; No Murmurs; No JVD, RRR Abdominal: - - abd soft, tender to palpation, especially in LLQ, palpable mass. Percutaneous drain in place with brownish fluid Extremities: No Clubbing, Cyanosis - trace LE edema Skin: No Rash or Ulcers Neurological: Alert and Oriented x 3 Lines/Tubes/Other Access: Clean, Dry and Intact Peripheral IV Nutrition: Taking PO's - clear liquids Result Diagrams: 06/27/16 05:18 06/27/16 05:18 Additional Lab and Data: Lab Results 06/25/16 Range/Units 11:25 WBC 17.2 H (3.5-10.8) 10^3/ul RBC 4.47 (4.0-5.4) 10^6/ul Hgb 12.7 L (14.0-18.0) g/dl Hct 39 L (42-52) % MCV 86 (80-94) fL MCH 28 (27-31) pg MCHC 33 (31-36) g/dl RDW 15 (10.5-15) % Plt Count 168 (150-450) 10^3/ul MPV 9 (7.4-10.4) um3 Neut % (Auto) 89.5 H (38-83) % Lymph % (Auto) 3.6 L (25-47) % [place] % (Auto) 6.5 (1-9) % Eos % (Auto) 0.1 (0-6) % Baso % (Auto) 0.3 (0-2) % Absolute Neuts (auto) 15.4 H (1.5-7.7) 10^3/ul Absolute Lymphs (auto) 0.6 L (1.0-4.8) 10^3/ul Absolute Monos (auto) 1.1 H (0-0.8) 10^3/ul Absolute Eos (auto) 0 (0-0.6) 10^3/ul Absolute Basos (auto) 0.1 (0-0.2) 10^3/ul Absolute Nucleated RBC 0 10^3/ul Nucleated RBC % 0 Microbiology and Other Data: Microbiology 06/25/16 22:20 Nasal Screen MRSA (PCR)(NOBLE) - Final Nasal Mrsa Positive Assess/Plan/Problems-Billing Assessment: Mr. German is an 86 yo male with a PMH of CAD, stage 3 CKD, BPH, and Olson's esophagus who presented to the ED on 06/25/16 with abdominal pain that was found to be secondary to diverticulitis with associated perforation and early abscess. - Patient Problems (1) Diverticulitis of colon with perforation Code(s): K57.20 - DVTRCLI OF LG INT W PERFORATION AND ABSCESS W/O BLEEDING Comment: S/p percutaneous drain placement 06/26 Appreciate surgical input Continue Zosyn and monitor closely for decompensation Continue IVF, pain management (2) CAD (coronary artery disease) Code(s): I25.10 - ATHSCL HEART DISEASE OF [place] CORONARY ARTERY W/O ANG PCTRS Comment: Stable. Continue statin. (3) CKD (chronic kidney disease) stage 3, GFR 30-59 ml/min Code(s): N18.3 - CHRONIC KIDNEY DISEASE, STAGE 3 (MODERATE) Comment: Mild bump in creatinine today. Suspect secondary to dehydration. Increase IVF rate, recheck BMP tomorrow. (4) BPH (benign prostatic hyperplasia) Code(s): N40.0 - BENIGN PROSTATIC HYPERPLASIA WITHOUT LOWER URINRY TRACT SYMP Comment: Patient with difficulty urinating last evening, terazosin restarted. Closely monitor BP in the presence of acute infection. (5) DVT prophylaxis Code(s): FVA4767 - Comment: SQ Lovenox Status and Disposition: Inpatient admission. Anticipate LOS >2 days.
--- NOTE | 2016-06-27 10:47 | PN ---
Progress Note - Progress Note SOAP: Subjective: Feels much better this morning-less pain and is sitting out of bed. Passing some flatus, no N/V Objective: Temp Pulse Resp BP Pulse Ox 97.8 F 93 18 95/53 97 06/26/16 23:10 06/26/16 23:10 06/26/16 23:10 06/26/16 23:10 06/26/16 23:10 LLQ drain with turbid brown fluid in bag PEX: Abd is soft and non-distended. There is tenderness in the LLQ with fullness and a mass. There is no pain in remainder of abdomen. Laboratory Last Values WBC 11.3 10^3/ul (3.5-10.8) H 06/27/16 05:18 RBC 4.07 10^6/ul (4.0-5.4) 06/27/16 05:18 Hgb 11.4 g/dl (14.0-18.0) L 06/27/16 05:18 Hct 35 % (42-52) L 06/27/16 05:18 MCV 87 fL (80-94) 06/27/16 05:18 MCH 28 pg (27-31) 06/27/16 05:18 MCHC 33 g/dl (31-36) 06/27/16 05:18 RDW 15 % (10.5-15) 06/27/16 05:18 Plt Count 164 10^3/ul (150-450) 06/27/16 05:18 MPV 8 um3 (7.4-10.4) 06/27/16 05:18 Neut % (Auto) 88.9 % (38-83) H 06/27/16 05:18 Lymph % (Auto) 3.6 % (25-47) L 06/27/16 05:18 Miller % (Auto) 6.9 % (1-9) 06/27/16 05:18 Eos % (Auto) 0 % (0-6) 06/27/16 05:18 Baso % (Auto) 0.6 % (0-2) 06/27/16 05:18 Absolute Neuts (auto) 10.1 10^3/ul (1.5-7.7) H 06/27/16 05:18 Absolute Lymphs (auto) 0.4 10^3/ul (1.0-4.8) L 06/27/16 05:18 Absolute Monos (auto) 0.8 10^3/ul (0-0.8) 06/27/16 05:18 Absolute Eos (auto) 0 10^3/ul (0-0.6) 06/27/16 05:18 Absolute Basos (auto) 0.1 10^3/ul (0-0.2) 06/27/16 05:18 Absolute Nucleated RBC 0 10^3/ul 06/27/16 05:18 Nucleated RBC % 0 06/27/16 05:18 INR (Anticoag Therapy) 1.08 (0.89-1.11) 06/26/16 05:04 APTT 30.9 seconds (26.0-36.3) 06/26/16 05:04 Sodium 137 mmol/L (133-145) 06/27/16 05:18 Potassium 3.7 mmol/L (3.5-5.0) 06/27/16 05:18 Chloride 108 mmol/L (101-111) 06/27/16 05:18 Carbon Dioxide 23 mmol/L (22-32) 06/27/16 05:18 Anion Gap 6 mmol/L (2-11) 06/27/16 05:18 BUN 22 mg/dL (6-24) 06/27/16 05:18 Creatinine 1.37 mg/dL (0.67-1.17) H 06/27/16 05:18 Est GFR ( Amer) 63.7 (>60) 06/27/16 05:18 Est GFR (Non-Af Amer) 49.5 (>60) 06/27/16 05:18 BUN/Creatinine Ratio 16.1 (8-20) 06/27/16 05:18 Glucose 133 mg/dL (70-100) H 06/27/16 05:18 Lactic Acid 1.1 mmol/L (0.5-2.0) 06/25/16 11:25 Calcium 7.9 mg/dL (8.6-10.3) L 06/27/16 05:18 Total Bilirubin 0.70 mg/dL (0.2-1.0) 06/25/16 11:25 AST 9 U/L (13-39) L 06/25/16 11:25 ALT 9 U/L (7-52) 06/25/16 11:25 Alkaline Phosphatase 48 U/L (34-104) 06/25/16 11:25 Troponin I 0.03 ng/mL (<0.04) 06/25/16 11:25 C-Reactive Protein 154.93 mg/L (< 5.00) H 06/25/16 11:25 C-React Prot High Sens 111.74 mg/L 06/26/16 05:04 Total Protein 6.4 g/dL (6.4-8.9) 06/25/16 11:25 Albumin 3.6 g/dL (3.2-5.2) 06/25/16 11:25 Globulin 2.8 g/dL (2-4) 06/25/16 11:25 Albumin/Globulin Ratio 1.3 (1-3) 06/25/16 11:25 Amylase 28 U/L (29-103) L 06/25/16 11:25 Lipase < 10 U/L (11.0-82.0) L 06/25/16 11:25 Urine Color Yellow 06/25/16 13:55 Urine Appearance Cloudy 06/25/16 13:55 Urine pH 6.0 (5-9) 06/25/16 13:55 Ur Specific [place] 1.017 (1.010-1.030) 06/25/16 13:55 Urine Protein 1+(30 mg/dl) (Negative) H 06/25/16 13:55 Urine Ketones Trace (Negative) H 06/25/16 13:55 Urine Blood Negative (Negative) 06/25/16 13:55 Urine Nitrate Negative (Negative) 06/25/16 13:55 Urine Bilirubin Negative (Negative) 06/25/16 13:55 Urine Urobilinogen Negative (Negative) 06/25/16 13:55 Ur Leukocyte Esterase Negative (Negative) 06/25/16 13:55 Urine WBC (Auto) Absent (Absent) 06/25/16 13:55 Urine RBC (Auto) Absent (Absent) 06/25/16 13:55 Urine Bacteria Absent (Absent) 06/25/16 13:55 Hyaline Casts Present (Absent) H 06/25/16 13:55 Urine Glucose Negative (Negative) 06/25/16 13:55 Assessment: Acute sigmoid diverticulitis with abscess s/p percutaneous drainage yesterday. Leukocytosis improving. No signs of peritonitis or sepsis at present Plan: Continue IV antibiotics Abscess drainage catheter in place Follow clinically-no surgical intervention at present. All discussed with patient.
[2016-06-27] MEDS ORDERED: NS 0.9% 500 ML* 500 ML IV SCH (11:00)
[2016-06-27] MEDS: Acetaminophen TAB* 325 MG PO PRN (16:29)
[2016-06-27] MEDS: Enoxaparin(*) 40 MG/0.4 ML SYR SUBCUT SCH (16:29)
[2016-06-27] MEDS: Terazosin CAP* 5 MG PO SCH (21:15)
[2016-06-27] MEDS: Atorvastatin* 10 MG TAB PO SCH (21:15)
[2016-06-28] MEDS: QUEtiapine TAB* 25 MG PO PRN (01:07)
[2016-06-28] MEDS: Piperac/Tazob 3.375 gm in NS* 3.375 GM/100 ML BAG IVPB SCH ×3 (01:47→17:26)
[2016-06-28 06:42] LABS: Hematocrit 31 % (42-52); Hemoglobin 10.2 g/dl (14.0-18.0); Mean Corpuscular HGB Conc 33 g/dl (31-36); Mean Corpuscular Hemoglobin 29 pg (27-31); Mean Corpuscular Volume 86 fL (80-94); Mean Platelet Volume 8 um3 (7.4-10.4); Red Blood Count 3.55 10^6/ul (4.0-5.4); Red Cell Distribution Width 15 % (10.5-15); White Blood Count 11.4 10^3/ul (3.5-10.8)
[2016-06-28 07:00] LABS: BUN/Creatinine Ratio 15.7 (8-20); Calcium 7.9 mg/dL (8.6-10.3); EGFR African American 69.5 (>60); Potassium 3.1 mmol/L (3.5-5.0)
--- NOTE | 2016-06-28 08:17 | PN ---
Subjective Date of Service: 06/28/16 Interval History: Patient seen and examined at bedside. He is alert and reports feeling "pretty good." Denies fever/chills, CP, SOB, n/v. Reports passing gas, tolerating clear liquids. Abd pain is intermittent and "not as bad." He does report increased fatigue today. He is open to learning drain care, in the event he needs to be discharged home with it. Family History: Unchanged from Admission Social History: Unchanged from Admission Past Medical History: Unchanged from Admission Objective Active Medications: Acetaminophen (Tylenol Tab*) 650 mg PO Q4H PRN PRN Reason: FEVER/PAIN Last Admin: 06/27/16 16:29 Dose: 650 mg Atorvastatin Calcium (Lipitor*) 10 mg PO BEDTIME [facility] PRN Reason: Protocol Last Admin: 06/27/16 21:15 Dose: 10 mg Enoxaparin Sodium (Lovenox(*)) 40 mg SUBCUT Q24H [facility] Last Admin: 06/27/16 16:29 Dose: 40 mg Sodium Chloride (Ns 0.9% 1000 Ml*) 1,000 mls @ 100 mls/hr IV PER RATE [facility] Piperacillin Sod/Tazobactam Sod (Zosyn 3.375 Gm In Ns Premix*) 3.375 gm in 100 mls @ 25 mls/hr IVPB Q8H [facility] Morphine Sulfate (Morphine Inj (Syringe)*) 2 mg IV Q4H PRN PRN Reason: PAIN Oxycodone/Acetaminophen (Percocet 5/325 Tab*) 1 tab PO Q4H PRN PRN Reason: Pain Last Admin: 06/26/16 09:05 Dose: 1 tab Potassium Chloride (Klor Con Er Tab*) 40 meq PO BID [facility] Stop: 06/28/16 21:01 Quetiapine Fumarate (Seroquel Tab*) 25 mg PO DAILY PRN PRN Reason: AGITATION Last Admin: 06/28/16 01:07 Dose: 25 mg Terazosin HCl (Hytrin Cap*) 5 mg PO BEDTIME [facility] Last Admin: 06/27/16 21:15 Dose: 5 mg Vital Signs 06/27/16 06/27/16 06/27/16 11:05 13:54 16:15 Temperature 97.4 F 98.0 F Pulse Rate 88 82 Respiratory 16 18 Rate Blood Pressure 102/60 110/49 106/61 (mmHg) O2 Sat by Pulse Oximetry 06/27/16 06/27/16 06/27/16 16:17 20:00 23:34 Temperature 98.3 F Pulse Rate 98 82 Respiratory 16 19 Rate Blood Pressure 93/54 (mmHg) O2 Sat by Pulse 97 94 Oximetry 06/28/16 07:30 Temperature 98.9 F Pulse Rate 114 Respiratory 24 Rate Blood Pressure 106/59 (mmHg) O2 Sat by Pulse 94 Oximetry Oxygen Devices in Use Now: None Appearance: Older male patient, OOB to chair, in NAD Eyes: PERRLA Ears/Nose/Mouth/Throat: Clear Oropharnyx, Mucous Membranes Moist Neck: NL Appearance and Movements; NL JVP Respiratory: Symmetrical Chest Expansion and Respiratory Effort, Clear to Auscultation Cardiovascular: NL Sounds; No Murmurs; No JVD, RRR Abdominal: - - abdomen soft, non-distender, tender to LLQ, drain to LLQ with brown fluid Extremities: No Edema Skin: No Rash or Ulcers Neurological: Alert and Oriented x 3 Lines/Tubes/Other Access: Clean, Dry and Intact Peripheral IV Nutrition: Taking PO's Result Diagrams: 06/28/16 06:17 06/28/16 06:17 Additional Lab and Data: Lab Results 06/25/16 Range/Units 11:25 WBC 17.2 H (3.5-10.8) 10^3/ul RBC 4.47 (4.0-5.4) 10^6/ul Hgb 12.7 L (14.0-18.0) g/dl Hct 39 L (42-52) % MCV 86 (80-94) fL MCH 28 (27-31) pg MCHC 33 (31-36) g/dl RDW 15 (10.5-15) % Plt Count 168 (150-450) 10^3/ul MPV 9 (7.4-10.4) um3 Neut % (Auto) 89.5 H (38-83) % Lymph % (Auto) 3.6 L (25-47) % [place] % (Auto) 6.5 (1-9) % Eos % (Auto) 0.1 (0-6) % Baso % (Auto) 0.3 (0-2) % Absolute Neuts (auto) 15.4 H (1.5-7.7) 10^3/ul Absolute Lymphs (auto) 0.6 L (1.0-4.8) 10^3/ul Absolute Monos (auto) 1.1 H (0-0.8) 10^3/ul Absolute Eos (auto) 0 (0-0.6) 10^3/ul Absolute Basos (auto) 0.1 (0-0.2) 10^3/ul Absolute Nucleated RBC 0 10^3/ul Nucleated RBC % 0 Microbiology and Other Data: Microbiology 06/25/16 22:20 Nasal Screen MRSA (PCR)(NOBLE) - Final Nasal Mrsa Positive Assess/Plan/Problems-Billing Assessment: Mr. German is an 86 yo male with a PMH of CAD, stage 3 CKD, BPH, and Olson's esophagus who presented to the ED on 06/25/16 with abdominal pain that was found to be secondary to diverticulitis with associated perforation and early abscess. - Patient Problems (1) Diverticulitis of colon with perforation Code(s): K57.20 - DVTRCLI OF LG INT W PERFORATION AND ABSCESS W/O BLEEDING Comment: S/p percutaneous drain placement 06/26, with 250 mL over last 24 hours Appreciate surgical input Continue Zosyn Continue IVF, pain management Start drain care teaching (2) CAD (coronary artery disease) Code(s): I25.10 - ATHSCL HEART DISEASE OF [place] CORONARY ARTERY W/O ANG PCTRS Comment: Stable. Continue statin. (3) CKD (chronic kidney disease) stage 3, GFR 30-59 ml/min Code(s): N18.3 - CHRONIC KIDNEY DISEASE, STAGE 3 (MODERATE) Comment: Creatinine within baseline. (4) BPH (benign prostatic hyperplasia) Code(s): N40.0 - BENIGN PROSTATIC HYPERPLASIA WITHOUT LOWER URINRY TRACT SYMP Comment: Continue terazosin. Closely monitor BP in the presence of acute infection. (5) DVT prophylaxis Code(s): OLI0852 - Comment: SQ Lovenox Status and Disposition: Inpatient admission. Discharge planning, anticipate discharge in 2-4 days.
--- NOTE | 2016-06-28 08:26 | PN ---
Progress Note - Progress Note SOAP: Subjective: Continues to feel better having some loose BM's and tolerating clear liquids Much less pain Objective: Afebrile VSS Intake & Output 06/26/16 06/27/16 06/28/16 06/29/16 06:59 06:59 06:59 06:59 Intake Total 2789 1559 4123 Output Total 100 175 975 Balance 2689 1384 3148 Weight 146 lb 9.6 oz Intake: IV Fluids 2684 719 2630 LR 598 952 6817 NS (0.9%) 20 520 IVPB 105 100 333 ABX - ZOSYN 105 100 333 Oral 0 740 1160 Output: Urine 100 175 975 Other: Estimated Void Medium # Bowel Movements 0 0 1 Estimated Stool Amount Small # Voids 100 0 2 Drain with turbid brown drainage in bag-nurse reports 250 cc in 24 hours output PEX:Comfortable Lungs are CTA Abd is soft and non-distended. The drain is in place. Mild tenderness in the LLQ without mass, rebound or guarding. Laboratory Results - last 24 hr 06/28/16 06/28/16 06:17 06:17 WBC 11.4 H RBC 3.55 L Hgb 10.2 L Hct 31 L MCV 86 MCH 29 MCHC 33 RDW 15 Plt Count 165 MPV 8 Neut % (Auto) 90.2 H Lymph % (Auto) 5.1 L [place] % (Auto) 4.0 Eos % (Auto) 0.5 Baso % (Auto) 0.2 Absolute Neuts (auto) 10.3 H Absolute Lymphs (auto) 0.6 L Absolute Monos (auto) 0.5 Absolute Eos (auto) 0.1 Absolute Basos (auto) 0 Absolute Nucleated RBC 0 Nucleated RBC % 0 Sodium 138 Potassium 3.1 L Chloride 111 Carbon Dioxide 20 L Anion Gap 7 BUN 20 Creatinine 1.27 H Est GFR ( Amer) 69.5 Est GFR (Non-Af Amer) 54.0 BUN/Creatinine Ratio 15.7 Glucose 99 Calcium 7.9 L Assessment: Sigmoid diverticulitis with abscess s/p percutaneous drainage. He is doing well and continues to feel better. Tolerating liquids and passing flatus NO signs of sepsis Plan: Continue IV antibiotics and drainage May be able to go home in several days as long as improves on oral antibiotics with drain in.
[2016-06-28] MEDS: Potassium Chlor TAB* 20 MEQ TAB.ER PO SCH ×2 (09:57→21:43)
[2016-06-28] MEDS: NS 0.9% 1000 ML* 1,000 ML IV SCH ×2 (10:08→21:43)
[2016-06-28] MEDS: Enoxaparin(*) 40 MG/0.4 ML SYR SUBCUT SCH (17:26)
[2016-06-28] MEDS: oxyCODONE/Acetamin 5/325 MG* TAB PO PRN (17:32)
[2016-06-28] MEDS ORDERED: NS 0.9% 1000 ML* 1,000 ML IV ONE (18:18)
[2016-06-28] MEDS: Terazosin CAP* 5 MG PO SCH (21:47)
[2016-06-28] MEDS: Atorvastatin* 10 MG TAB PO SCH (21:47)
[2016-06-29] MEDS: oxyCODONE/Acetamin 5/325 MG* TAB PO PRN ×4 (00:12→23:20)
[2016-06-29] MEDS: Piperac/Tazob 3.375 gm in NS* 3.375 GM/100 ML BAG IVPB SCH ×3 (02:35→18:16)
[2016-06-29 06:54] LABS: BUN/Creatinine Ratio 13.8 (8-20); EGFR African American 77.1 (>60); Potassium 3.9 mmol/L (3.5-5.0)
--- NOTE | 2016-06-29 08:45 | PN ---
Subjective Date of Service: 06/29/16 Interval History: Patient seen and examined at bedside. He is OOB to chair. He states, "I finally feel like I'm starting to get better." He does endorse pain and states, "I think it's time for another Percocet." He states the Percocet do help with his pain. He also notes the drainage is "getting less." He denies CP, SOB, n/v Family History: Unchanged from Admission Social History: Unchanged from Admission Past Medical History: Unchanged from Admission Objective Active Medications: Acetaminophen (Tylenol Tab*) 650 mg PO Q4H PRN PRN Reason: FEVER/PAIN Last Admin: 06/27/16 16:29 Dose: 650 mg Atorvastatin Calcium (Lipitor*) 10 mg PO BEDTIME [facility] PRN Reason: Protocol Last Admin: 06/28/16 21:47 Dose: 10 mg Enoxaparin Sodium (Lovenox(*)) 40 mg SUBCUT Q24H [facility] Last Admin: 06/28/16 17:26 Dose: 40 mg Sodium Chloride (Ns 0.9% 1000 Ml*) 1,000 mls @ 100 mls/hr IV PER RATE [facility] Last Admin: 06/28/16 21:43 Dose: 100 mls/hr Piperacillin Sod/Tazobactam Sod (Zosyn 3.375 Gm In Ns Premix*) 3.375 gm in 100 mls @ 25 mls/hr IVPB Q8H [facility] Last Admin: 06/29/16 02:35 Dose: 25 mls/hr Morphine Sulfate (Morphine Inj (Syringe)*) 2 mg IV Q4H PRN PRN Reason: PAIN Oxycodone/Acetaminophen (Percocet 5/325 Tab*) 1 tab PO Q4H PRN PRN Reason: Pain Last Admin: 06/29/16 00:12 Dose: 1 tab Quetiapine Fumarate (Seroquel Tab*) 25 mg PO DAILY PRN PRN Reason: AGITATION Last Admin: 06/28/16 01:07 Dose: 25 mg Terazosin HCl (Hytrin Cap*) 5 mg PO BEDTIME [facility] Last Admin: 06/28/16 21:47 Dose: 5 mg Vital Signs 06/28/16 06/28/16 06/28/16 15:30 17:32 19:32 Temperature 98.8 F Pulse Rate 95 Respiratory 18 19 16 Rate Blood Pressure 129/69 (mmHg) O2 Sat by Pulse 93 Oximetry 06/28/16 06/28/16 06/29/16 20:00 23:59 00:12 Temperature 97.5 F Pulse Rate 78 Respiratory 16 16 16 Rate Blood Pressure 127/81 (mmHg) O2 Sat by Pulse 95 Oximetry 06/29/16 02:41 Temperature Pulse Rate Respiratory 16 Rate Blood Pressure (mmHg) O2 Sat by Pulse Oximetry Oxygen Devices in Use Now: None Appearance: Older male patient, OOB to chair, in NAD Eyes: PERRLA Ears/Nose/Mouth/Throat: Clear Oropharnyx, Mucous Membranes Moist Neck: NL Appearance and Movements; NL JVP Respiratory: Symmetrical Chest Expansion and Respiratory Effort, Clear to Auscultation Cardiovascular: NL Sounds; No Murmurs; No JVD, RRR Abdominal: - - BS present, abd soft, mild tenderness to palpation in LLQ, non- distended; percutaneous drain with yellow fluid Extremities: No Edema Skin: No Rash or Ulcers Neurological: Alert and Oriented x 3 Lines/Tubes/Other Access: Clean, Dry and Intact Peripheral IV Nutrition: Taking PO's Result Diagrams: 06/28/16 06:17 06/29/16 05:59 Additional Lab and Data: Lab Results 06/25/16 Range/Units 11:25 WBC 17.2 H (3.5-10.8) 10^3/ul RBC 4.47 (4.0-5.4) 10^6/ul Hgb 12.7 L (14.0-18.0) g/dl Hct 39 L (42-52) % MCV 86 (80-94) fL MCH 28 (27-31) pg MCHC 33 (31-36) g/dl RDW 15 (10.5-15) % Plt Count 168 (150-450) 10^3/ul MPV 9 (7.4-10.4) um3 Neut % (Auto) 89.5 H (38-83) % Lymph % (Auto) 3.6 L (25-47) % [place] % (Auto) 6.5 (1-9) % Eos % (Auto) 0.1 (0-6) % Baso % (Auto) 0.3 (0-2) % Absolute Neuts (auto) 15.4 H (1.5-7.7) 10^3/ul Absolute Lymphs (auto) 0.6 L (1.0-4.8) 10^3/ul Absolute Monos (auto) 1.1 H (0-0.8) 10^3/ul Absolute Eos (auto) 0 (0-0.6) 10^3/ul Absolute Basos (auto) 0.1 (0-0.2) 10^3/ul Absolute Nucleated RBC 0 10^3/ul Nucleated RBC % 0 Microbiology and Other Data: Microbiology 06/25/16 22:20 Nasal Screen MRSA (PCR)(NOBLE) - Final Nasal Mrsa Positive Assess/Plan/Problems-Billing Assessment: Mr. German is an 86 yo male with a PMH of CAD, stage 3 CKD, BPH, and Olson's esophagus who presented to the ED on 06/25/16 with abdominal pain that was found to be secondary to diverticulitis with associated perforation and early abscess. - Patient Problems (1) Diverticulitis of colon with perforation Code(s): K57.20 - DVTRCLI OF LG INT W PERFORATION AND ABSCESS W/O BLEEDING Comment: S/p percutaneous drain placement 06/26, now draining yellowish fluid Appreciate surgical input Continue Zosyn Continue IVF, pain management Continue drain care teaching (2) CAD (coronary artery disease) Code(s): I25.10 - ATHSCL HEART DISEASE OF [place] CORONARY ARTERY W/O ANG PCTRS Comment: Stable. Continue statin. (3) CKD (chronic kidney disease) stage 3, GFR 30-59 ml/min Code(s): N18.3 - CHRONIC KIDNEY DISEASE, STAGE 3 (MODERATE) Comment: Creatinine within baseline. (4) BPH (benign prostatic hyperplasia) Code(s): N40.0 - BENIGN PROSTATIC HYPERPLASIA WITHOUT LOWER URINRY TRACT SYMP Comment: Continue terazosin. Closely monitor BP in the presence of acute infection. (5) DVT prophylaxis Code(s): [id number] - Comment: SQ Lovenox Status and Disposition: Inpatient admission. Discharge planning, anticipate discharge in 2-4 days.
[2016-06-29 10:37] LABS: Magnesium 1.8 mg/dL (1.9-2.7)
[2016-06-29] MEDS ORDERED: NS 0.9% 1000 ML* 1,000 ML IV SCH (14:41)
[2016-06-29] MEDS ORDERED: Magnesium Sulfate 1 GM IV* 1 GM/100 ML BAG IV ONE (16:39)
[2016-06-29] MEDS: Enoxaparin(*) 40 MG/0.4 ML SYR SUBCUT SCH (17:13)
[2016-06-29] MEDS: Atorvastatin* 10 MG TAB PO SCH (21:06)
[2016-06-29] MEDS: Terazosin CAP* 5 MG PO SCH (21:06)
[2016-06-29] MEDS: Nystatin OINT* 15 GM TOPICAL SCH (21:07)
[2016-06-29] MEDS: QUEtiapine TAB* 25 MG PO PRN (23:20)
[2016-06-30] MEDS: Piperac/Tazob 3.375 gm in NS* 3.375 GM/100 ML BAG IVPB SCH ×3 (01:20→17:16)
[2016-06-30 07:05] LABS: Hematocrit 34 % (42-52); Mean Corpuscular HGB Conc 33 g/dl (31-36); Mean Corpuscular Hemoglobin 28 pg (27-31); Mean Corpuscular Volume 86 fL (80-94); Mean Platelet Volume 8 um3 (7.4-10.4); Red Blood Count 3.92 10^6/ul (4.0-5.4); Red Cell Distribution Width 15 % (10.5-15); White Blood Count 13.5 10^3/ul (3.5-10.8)
[2016-06-30 07:07] LABS: Add Diff/Slide Review? Slide Review Added; Comments Flag Yes
[2016-06-30] MEDS ORDERED: Magnesium Sulfate 2 GM IV* 2 GM/50 ML BAG IVPB ONE (07:26)
[2016-06-30 07:45] LABS: Immature Granulocytes 5 % (0-9); Metamyelocytes % 1 % (0-2); Myelocytes % 4 % (0-1); Neutrophil % 80 % (38-83)
[2016-06-30 07:46] LABS: RBC Morphology Normal (Normal)
--- NOTE | 2016-06-30 08:32 | PN ---
Subjective Date of Service: 06/30/16 Interval History: Patient seen and examined at bedside. He denies fever/chills, chest pain, SOB, n /v. He reports intermittent abd pain. He states he has been observing how to care for his drain but has not yet done it himself. Tolerating clear liquids. No acute concerns from nursing at this time. Family History: Unchanged from Admission Social History: Unchanged from Admission Past Medical History: Unchanged from Admission Objective Active Medications: Acetaminophen (Tylenol Tab*) 650 mg PO Q4H PRN PRN Reason: FEVER/PAIN Last Admin: 06/27/16 16:29 Dose: 650 mg Atorvastatin Calcium (Lipitor*) 10 mg PO BEDTIME [facility] PRN Reason: Protocol Last Admin: 06/29/16 21:06 Dose: 10 mg Enoxaparin Sodium (Lovenox(*)) 40 mg SUBCUT Q24H [facility] Last Admin: 06/29/16 17:13 Dose: 40 mg Piperacillin Sod/Tazobactam Sod (Zosyn 3.375 Gm In Ns Premix*) 3.375 gm in 100 mls @ 25 mls/hr IVPB Q8H [facility] Last Admin: 06/30/16 01:20 Dose: 25 mls/hr Morphine Sulfate (Morphine Inj (Syringe)*) 2 mg IV Q4H PRN PRN Reason: PAIN Nystatin (Nystatin Oint*) 1 applic TOPICAL BID [facility] Last Admin: 06/29/16 21:07 Dose: 1 applic Oxycodone/Acetaminophen (Percocet 5/325 Tab*) 1 tab PO Q4H PRN PRN Reason: Pain Last Admin: 06/29/16 23:20 Dose: 1 tab Quetiapine Fumarate (Seroquel Tab*) 25 mg PO DAILY PRN PRN Reason: AGITATION Last Admin: 06/29/16 23:20 Dose: 25 mg Terazosin HCl (Hytrin Cap*) 5 mg PO BEDTIME [facility] Last Admin: 06/29/16 21:06 Dose: 5 mg Vital Signs 06/29/16 06/29/16 06/29/16 10:33 12:33 16:41 Temperature 97.6 F Pulse Rate 94 Respiratory 18 16 Rate Blood Pressure 148/85 (mmHg) O2 Sat by Pulse 98 Oximetry 06/29/16 06/29/16 06/29/16 18:16 20:00 20:16 Temperature Pulse Rate Respiratory 18 16 16 Rate Blood Pressure (mmHg) O2 Sat by Pulse Oximetry 06/29/16 06/30/16 06/30/16 23:20 00:23 01:00 Temperature 97.2 F Pulse Rate 59 66 Respiratory 16 16 Rate Blood Pressure 128/68 (mmHg) O2 Sat by Pulse 96 Oximetry 06/30/16 06/30/16 06/30/16 01:20 07:47 07:52 Temperature 97.5 F Pulse Rate 72 Respiratory 16 18 Rate Blood Pressure 143/81 (mmHg) O2 Sat by Pulse 96 Oximetry Oxygen Devices in Use Now: None Appearance: Older male patient, lying in bed, in NAD Eyes: PERRLA Ears/Nose/Mouth/Throat: Clear Oropharnyx, Mucous Membranes Moist Neck: NL Appearance and Movements; NL JVP Respiratory: Symmetrical Chest Expansion and Respiratory Effort, Clear to Auscultation Cardiovascular: NL Sounds; No Murmurs; No JVD, RRR Abdominal: NL Sounds; No Tenderness; No Distention - BS present, mild tenderness to palpation, percutaneous drain intact with yellow, thick fluid Extremities: No Clubbing, Cyanosis - 1+ edema Skin: No Rash or Ulcers Neurological: Alert and Oriented x 3 Lines/Tubes/Other Access: Clean, Dry and Intact Peripheral IV Nutrition: Taking PO's Result Diagrams: 06/30/16 05:50 06/29/16 05:59 Additional Lab and Data: Lab Results 06/25/16 Range/Units 11:25 WBC 17.2 H (3.5-10.8) 10^3/ul RBC 4.47 (4.0-5.4) 10^6/ul Hgb 12.7 L (14.0-18.0) g/dl Hct 39 L (42-52) % MCV 86 (80-94) fL MCH 28 (27-31) pg MCHC 33 (31-36) g/dl RDW 15 (10.5-15) % Plt Count 168 (150-450) 10^3/ul MPV 9 (7.4-10.4) um3 Neut % (Auto) 89.5 H (38-83) % Lymph % (Auto) 3.6 L (25-47) % [place] % (Auto) 6.5 (1-9) % Eos % (Auto) 0.1 (0-6) % Baso % (Auto) 0.3 (0-2) % Absolute Neuts (auto) 15.4 H (1.5-7.7) 10^3/ul Absolute Lymphs (auto) 0.6 L (1.0-4.8) 10^3/ul Absolute Monos (auto) 1.1 H (0-0.8) 10^3/ul Absolute Eos (auto) 0 (0-0.6) 10^3/ul Absolute Basos (auto) 0.1 (0-0.2) 10^3/ul Absolute Nucleated RBC 0 10^3/ul Nucleated RBC % 0 Microbiology and Other Data: Microbiology 06/25/16 22:20 Nasal Screen MRSA (PCR)(NOBLE) - Final Nasal Mrsa Positive Assess/Plan/Problems-Billing Assessment: Mr. German is an 86 yo male with a PMH of CAD, stage 3 CKD, BPH, and Olson's esophagus who presented to the ED on 06/25/16 with abdominal pain that was found to be secondary to diverticulitis with associated perforation and early abscess. - Patient Problems (1) Diverticulitis of colon with perforation Code(s): K57.20 - DVTRCLI OF LG INT W PERFORATION AND ABSCESS W/O BLEEDING Comment: S/p percutaneous drain placement 06/26, now draining thick yellow fluid Appreciate surgical input Continue Zosyn Continue IVF, pain management Continue drain care teaching (2) CAD (coronary artery disease) Code(s): I25.10 - ATHSCL HEART DISEASE OF [place] CORONARY ARTERY W/O ANG PCTRS Comment: Stable. Continue statin. (3) CKD (chronic kidney disease) stage 3, GFR 30-59 ml/min Code(s): N18.3 - CHRONIC KIDNEY DISEASE, STAGE 3 (MODERATE) Comment: Creatinine within baseline. (4) BPH (benign prostatic hyperplasia) Code(s): N40.0 - BENIGN PROSTATIC HYPERPLASIA WITHOUT LOWER URINRY TRACT SYMP Comment: Continue terazosin. Closely monitor BP in the presence of acute infection. (5) DVT prophylaxis Code(s): [id number] - Comment: SQ Lovenox Status and Disposition: Inpatient admission. Discharge planning, anticipate discharge in 1-2 days.
[2016-06-30] MEDS: Nystatin OINT* 15 GM TOPICAL SCH ×2 (09:37→20:31)
--- NOTE | 2016-06-30 11:31 | PN ---
Progress Note - Progress Note Note: Surgery Progress: S: HD and Zosyn Day #6. States that his morning was a little "rough", though denies sig abd pain, N/V. He does not have much appetite, but is also tiring of the clear liquids only. He's been passing both flatus and loose stool. He feels that he's getting weaker. O: Vital Signs - 8 hr 06/30/16 06/30/16 07:47 07:52 Temperature 97.5 F Pulse Rate 72 Respiratory 18 Rate Blood Pressure 143/81 (mmHg) O2 Sat by Pulse 96 Oximetry Intake and Output Last 24 Hours 06/28/16 06/29/16 06/30/16 07/01/16 06:59 06:59 06:59 06:59 Intake Total 4123 6315 2942 120 Output Total 975 625 675 300 Balance 3148 5690 2267 -180 Intake: IV Fluids 2630 4115 1991 LR 2110 300 NS (0.9%) 520 3815 1991 IVPB 333 165 320 ABX - ZOSYN 333 115 320 NS (0.9%) 50 Oral 1160 1980 580 120 Pigtail Drain 55 50 Output: Pigtail Drain 100 75 Urine 975 475 600 300 Irrigation 50 Other: Estimated Void Medium Medium Medium # Bowel Movements 1 0 0 Estimated Stool Amount Small # Voids 2 1 4 Gen: WN, WD in NAD Heart: reg w/ occ irreg beat Lungs: clear ant Abd: +BS; flat,nondistended; no sig tenderness; pigtail drainage: cloudy yellow w/ some particulate matter. Extr: 1-2 + edema, almost to knees bilat; no calf tenderness Labs: Laboratory Tests 06/28/16 06/29/16 06/30/16 06:17 05:59 05:50 WBC 11.4 H 13.5 H Hgb 11.0 L Neut % (Auto) 83.7 H BUN 16 Creatinine 1.16 C-Reactive Protein Pending A: acute diverticulitis, w/ perforation/abscess, s/p percutaneous drainage w/ indwelling pigtail catheter, improving overall, though WBC up a bit P: will recheck CBC 07/01; consider repeat CT if incr; will check w/ Dr. Goncalves re: diet; cont ABX (C&S reviewed)
[2016-06-30 12:33] LABS: C Reactive Protein 151.38 mg/L (< 5.00)
[2016-06-30] MEDS: oxyCODONE/Acetamin 5/325 MG* TAB PO PRN ×2 (13:37→20:36)
[2016-06-30] MEDS: Enoxaparin(*) 40 MG/0.4 ML SYR SUBCUT SCH (17:16)
[2016-06-30] MEDS: Atorvastatin* 10 MG TAB PO SCH (20:31)
[2016-06-30] MEDS: Terazosin CAP* 5 MG PO SCH (20:31)
[2016-06-30] MEDS: QUEtiapine TAB* 25 MG PO PRN (20:36)
[2016-07-01] MEDS: oxyCODONE/Acetamin 5/325 MG* TAB PO PRN ×4 (01:59→20:01)
[2016-07-01] MEDS: Piperac/Tazob 3.375 gm in NS* 3.375 GM/100 ML BAG IVPB SCH ×4 (02:00→22:14)
[2016-07-01 07:25] LABS: Hematocrit 38 % (42-52); Hemoglobin 12.2 g/dl (14.0-18.0); Mean Corpuscular HGB Conc 32 g/dl (31-36); Mean Corpuscular Hemoglobin 28 pg (27-31); Mean Corpuscular Volume 87 fL (80-94); Mean Platelet Volume 8 um3 (7.4-10.4); Red Blood Count 4.38 10^6/ul (4.0-5.4); Red Cell Distribution Width 15 % (10.5-15)
[2016-07-01 07:29] LABS: Add Diff/Slide Review? Slide Review Added; Comments Flag Yes
[2016-07-01 08:15] LABS: Eosinophils % 1 % (0-6); Immature Granulocytes 3 % (0-9); Metamyelocytes % 1 % (0-2); Myelocytes % 1 % (0-1); Neutrophil % 91 % (38-83)
[2016-07-01] MEDS: Nystatin OINT* 15 GM TOPICAL SCH ×2 (09:07→21:00)
[2016-07-01] MEDS ORDERED: Iohexol 300* (CONTRAST) 10 ML SDV IV ONE (11:24)
[2016-07-01 11:32] LABS: Albumin 2.5 g/dL (3.2-5.2); BUN/Creatinine Ratio 8.9 (8-20); C Reactive Protein 91.18 mg/L (< 5.00); Calcium 7.8 mg/dL (8.6-10.3); EGFR African American 72.1 (>60); EGFR Non-African American 56.1 (>60); Globulin 2.4 g/dL (2-4); Potassium 3.1 mmol/L (3.5-5.0); Total Bilirubin 0.6 mg/dL (0.2-1.0); Total Protein 4.9 g/dL (6.4-8.9)
--- NOTE | 2016-07-01 12:24 | RAD ---
CLINICAL HISTORY: Follow-up abscess drainage COMPARISON: June 26, 2016, June 25, 2016 TECHNIQUE: Multiple contiguous axial CT scans were obtained of the abdomen and pelvis after the administration of intravenous contrast. Coronal and sagittal multiplanar reformations are submitted for review. Oral contrast was administered. Delayed images were obtained through the abdomen FINDINGS: LUNG BASES: There are moderate bilateral pleural effusions. There is compressive atelectasis of the lung bases bilaterally. LIVER: Hepatic cysts are noted in the left lobe and along the inferior margin of the right lobe.. BILE DUCTS: There is mild ectasia of the common duct. GALLBLADDER: The gallbladder is normal, without pericholecystic inflammatory change. PANCREAS: There is mild ectasia of the pancreatic duct. There is mild pancreatic atrophy. There is no appreciable hepatic mass.. SPLEEN: Normal in size and appearance. UPPER GI TRACT: Evaluation of the gastrointestinal tract is limited by incomplete gastric distention. There is a moderate paraesophageal hiatal hernia SMALL BOWEL AND MESENTERY: The small bowel is normal in contour, course, and caliber. There is no obstruction or dilatation. COLON: There is extensive diverticulosis of the colon most pronounced along the sigmoid colon. A self locking drainage catheter is noted in the anterior abdomen along the sigmoid colon localizing to the previous location of the complex air-fluid collection. There has been interval organization of a fluid collection within the rectovesicular space, measuring approximately 4.7 x 5.6 x 4.8 cm in size. ADRENALS: Normal bilaterally. KIDNEYS: The kidneys are normal in shape, size, contour, and axis. There is no hydronephrosis or nephrolithiasis. BLADDER: The bladder is smooth in contour. PELVIC ORGANS: The prostate is diffusely enlarged. The seminal vesicles are symmetric. AORTA: There is calcific atherosclerotic disease of the abdominal aorta and its branches, without aneurysmal dilatation IVC: Unremarkable LYMPH NODES: There is no lymphadenopathy by size criteria. ABDOMINAL WALL: There is no evidence for abdominal wall hernia. BONES AND SOFT TISSUES: There is a scoliotic curvature of the spine. Degenerative changes are noted of the spine OTHER: None IMPRESSION: 1. THERE HAS BEEN INTERVAL DEVELOPMENT OF A LOCULATED FLUID COLLECTION WITHIN THE RECTOVESICULAR SPACE MEASURING APPROXIMATELY 5.6 CM IN SIZE, CONSISTENT WITH ABSCESS. 2. NASAL LOCKING DRAINAGE CATHETER IS NOTED IN THE ANTERIOR ASPECT OF THE LEFT LOWER QUADRANT, WITHOUT APPRECIABLE RESIDUAL ABSCESS IN THIS LOCATION. 3. BILATERAL PLEURAL EFFUSIONS WITH BIBASILAR ATELECTASIS.
[2016-07-01 13:38] LABS: Urine Bilirubin Negative (Negative); Urine Glucose Negative (Negative); Urine Nitrite Negative (Negative)
[2016-07-01] MEDS ORDERED: NS 0.9% 500 ML* 500 ML IV SCH (15:00)
--- NOTE | 2016-07-01 16:12 | PN ---
Subjective Date of Service: 07/01/16 Interval History: Patient seen and examined at bedside. He reports loose stools but states the pain "isn't as bad." He likes his [place] hose and feels they are helping with his LE edema. He denies CP, SOB, n/v. Family History: Unchanged from Admission Social History: Unchanged from Admission Past Medical History: Unchanged from Admission Objective Active Medications: Acetaminophen (Tylenol Tab*) 650 mg PO Q4H PRN PRN Reason: FEVER/PAIN Last Admin: 06/27/16 16:29 Dose: 650 mg Atorvastatin Calcium (Lipitor*) 10 mg PO BEDTIME WESLEY PRN Reason: Protocol Last Admin: 06/30/16 20:31 Dose: 10 mg Enoxaparin Sodium (Lovenox(*)) 40 mg SUBCUT Q24H [facility] Last Admin: 06/30/16 17:16 Dose: 40 mg Piperacillin Sod/Tazobactam Sod (Zosyn 3.375 Gm In Ns Premix*) 3.375 gm in 100 mls @ 25 mls/hr IVPB Q8H [facility] Last Admin: 07/01/16 09:47 Dose: 25 mls/hr Sodium Chloride (Ns 0.9% 1000 Ml*) 1,000 mls @ 100 mls/hr IV PER RATE WESLEY Sodium Chloride (Ns 0.9% 500 Ml Bag*) 500 mls @ 1,000 mls/hr IV .BOLUS [facility] Last Admin: 07/01/16 14:52 Dose: 1,000 mls/hr Morphine Sulfate (Morphine Inj (Syringe)*) 2 mg IV Q4H PRN PRN Reason: PAIN Nystatin (Nystatin Oint*) 1 applic TOPICAL BID [facility] Last Admin: 07/01/16 09:07 Dose: 1 applic Oxycodone/Acetaminophen (Percocet 5/325 Tab*) 1 tab PO Q4H PRN PRN Reason: Pain Last Admin: 07/01/16 14:59 Dose: 1 tab Quetiapine Fumarate (Seroquel Tab*) 25 mg PO DAILY PRN PRN Reason: AGITATION Last Admin: 06/30/16 20:36 Dose: 25 mg Terazosin HCl (Hytrin Cap*) 5 mg PO BEDTIME [facility] Last Admin: 06/30/16 20:31 Dose: 5 mg Vital Signs 0106/30/16 06/30/16 20:00 20:36 20:45 Temperature Pulse Rate 75 Respiratory 16 16 16 Rate Blood Pressure 141/73 (mmHg) O2 Sat by Pulse Oximetry 06/30/16 06/30/16 07/01/16 22:36 23:35 01:59 Temperature 97.2 F Pulse Rate 94 Respiratory 16 16 16 Rate Blood Pressure 124/71 (mmHg) O2 Sat by Pulse 98 Oximetry 07/01/16 07/01/16 07/01/16 03:59 07:42 08:00 Temperature 98.4 F Pulse Rate 106 Respiratory 16 20 Rate Blood Pressure 109/66 (mmHg) O2 Sat by Pulse 95 Oximetry 07/01/16 07/01/16 07/01/16 09:47 11:47 14:59 Temperature Pulse Rate Respiratory 20 14 14 Rate Blood Pressure (mmHg) O2 Sat by Pulse Oximetry Oxygen Devices in Use Now: None Appearance: Older gentleman, lying in bed, in NAD Eyes: PERRLA Ears/Nose/Mouth/Throat: Clear Oropharnyx, Mucous Membranes Moist Neck: NL Appearance and Movements; NL JVP Respiratory: Symmetrical Chest Expansion and Respiratory Effort, Clear to Auscultation - mildly diminished Cardiovascular: NL Sounds; No Murmurs; No JVD, RRR Abdominal: NL Sounds; No Tenderness; No Distention - mild tenderness to left abdomen with palpation, drain with yellow-brown fluid Extremities: No Clubbing, Cyanosis - +1 pedal edema Skin: No Rash or Ulcers Neurological: Alert and Oriented x 3 Lines/Tubes/Other Access: Clean, Dry and Intact Peripheral IV Nutrition: Taking PO's Result Diagrams: 07/01/16 06:18 07/01/16 11:08 Additional Lab and Data: Lab Results 06/25/16 Range/Units 11:25 WBC 17.2 H (3.5-10.8) 10^3/ul RBC 4.47 (4.0-5.4) 10^6/ul Hgb 12.7 L (14.0-18.0) g/dl Hct 39 L (42-52) % MCV 86 (80-94) fL MCH 28 (27-31) pg MCHC 33 (31-36) g/dl RDW 15 (10.5-15) % Plt Count 168 (150-450) 10^3/ul MPV 9 (7.4-10.4) um3 Neut % (Auto) 89.5 H (38-83) % Lymph % (Auto) 3.6 L (25-47) % [place] % (Auto) 6.5 (1-9) % Eos % (Auto) 0.1 (0-6) % Baso % (Auto) 0.3 (0-2) % Absolute Neuts (auto) 15.4 H (1.5-7.7) 10^3/ul Absolute Lymphs (auto) 0.6 L (1.0-4.8) 10^3/ul Absolute Monos (auto) 1.1 H (0-0.8) 10^3/ul Absolute Eos (auto) 0 (0-0.6) 10^3/ul Absolute Basos (auto) 0.1 (0-0.2) 10^3/ul Absolute Nucleated RBC 0 10^3/ul Nucleated RBC % 0 Microbiology and Other Data: Microbiology 06/25/16 22:20 Nasal Screen MRSA (PCR)(NOBLE) - Final Nasal Mrsa Positive Assess/Plan/Problems-Billing Assessment: Mr. German is an 86 yo male with a PMH of CAD, stage 3 CKD, BPH, and Olson's esophagus who presented to the ED on 06/25/16 with abdominal pain that was found to be secondary to diverticulitis with associated perforation and early abscess. - Patient Problems (1) Diverticulitis of colon with perforation Code(s): K57.20 - DVTRCLI OF LG INT W PERFORATION AND ABSCESS W/O BLEEDING Comment: S/p percutaneous drain placement 06/26 New abscess seen on CT scan, plan for 2nd percutaneous drain tomorrow Appreciate surgical input Continue Zosyn Continue IVF, pain management Continue drain care teaching (2) CAD (coronary artery disease) Code(s): I25.10 - ATHSCL HEART DISEASE OF [place] CORONARY ARTERY W/O ANG PCTRS Comment: Stable. Continue statin. (3) CKD (chronic kidney disease) stage 3, GFR 30-59 ml/min Code(s): N18.3 - CHRONIC KIDNEY DISEASE, STAGE 3 (MODERATE) Comment: Appears dehydrated, restart IVF Creatinine within baseline. (4) BPH (benign prostatic hyperplasia) Code(s): N40.0 - BENIGN PROSTATIC HYPERPLASIA WITHOUT LOWER URINRY TRACT SYMP Comment: Continue terazosin. Closely monitor BP in the presence of acute infection. (5) DVT prophylaxis Code(s): RBW7112 - Comment: Hold in anticipation of percutaneous drain placement tomorrow Resume SQ Lovenox tomorrow evening Status and Disposition: Inpatient admission. Discharge planning in progress.
[2016-07-01] MEDS: NS 0.9% 1000 ML* 1,000 ML IV SCH (16:23)
--- NOTE | 2016-07-01 16:44 | PN ---
Progress Note - Progress Note SOAP: Subjective: Patient initially seen at 0745 this morning He continues to feel well-having some loose BM's and tolerating some liquids. He only has abdominal pain when he is moving or walking Objective: Temp Pulse Resp BP Pulse Ox 98.4 F 106 14 109/66 95 07/01/16 07:42 07/01/16 07:42 07/01/16 14:59 07/01/16 07:42 07/01/16 07:42 Intake & Output 06/29/16 06/30/16 07/01/16 07/02/16 06:59 06:59 06:59 06:59 Intake Total 6315 2942 785 0 Output Total 823 662 1516 Balance 5690 2267 -1140 0 Weight 146 lb Intake: IV Fluids 4115 1991 165 ABX - ZOSYN 140 LR 300 NS (0.9%) 3815 1991 25 IVPB 165 320 140 ABX - ZOSYN 115 320 140 NS (0.9%) 50 Oral 1980 580 480 0 Pigtail Drain 55 50 Output: Abdominal Drain 75 Pigtail Drain 100 75 Urine 941 340 3854 Irrigation 50 Other: Estimated Void Medium Medium Medium Medium # Bowel Movements 0 0 0 1 Estimated Stool Amount Medium # Voids 1 4 2 2 PEX: Comfortable Abd is soft and non-distended. There are bowel sounds present throughout. Drain in place with some thin browinsh fluid in bag He has some mild tenderness in the RLQ, no generalized pain, rebound or guarding. Laboratory Last Values WBC 32.0 10^3/ul (3.5-10.8) H 07/01/16 06:18 RBC 4.38 10^6/ul (4.0-5.4) 07/01/16 06:18 Hgb 12.2 g/dl (14.0-18.0) L 07/01/16 06:18 Hct 38 % (42-52) L 07/01/16 06:18 MCV 87 fL (80-94) 07/01/16 06:18 MCH 28 pg (27-31) 07/01/16 06:18 MCHC 32 g/dl (31-36) 07/01/16 06:18 RDW 15 % (10.5-15) 07/01/16 06:18 Plt Count 281 10^3/ul (150-450) 07/01/16 06:18 MPV 8 um3 (7.4-10.4) 07/01/16 06:18 Immature Gran % (Auto) 3 % (0-9) 07/01/16 06:18 Neut % (Auto) 94.1 % (38-83) H 07/01/16 06:18 Lymph % (Auto) 1.9 % (25-47) L 07/01/16 06:18 [place] % (Auto) 3.6 % (1-9) 07/01/16 06:18 Eos % (Auto) 0.2 % (0-6) 07/01/16 06:18 Baso % (Auto) 0.2 % (0-2) 07/01/16 06:18 Absolute Neuts (auto) 30.1 10^3/ul (1.5-7.7) H 07/01/16 06:18 Absolute Lymphs (auto) 0.6 10^3/ul (1.0-4.8) L 07/01/16 06:18 Absolute Monos (auto) 1.1 10^3/ul (0-0.8) H 07/01/16 06:18 Absolute Eos (auto) 0.1 10^3/ul (0-0.6) 07/01/16 06:18 Absolute Basos (auto) 0.1 10^3/ul (0-0.2) 07/01/16 06:18 Absolute Nucleated RBC 0 10^3/ul 07/01/16 06:18 Neutrophils % 91 % (38-83) H 07/01/16 06:18 Band Neutrophils % 1 % (0-8) 07/01/16 06:18 Lymphocytes % 3 % (25-47) L 07/01/16 06:18 Monocytes % 2 % (0-13) 07/01/16 06:18 Eosinophils % 1 % (0-6) 07/01/16 06:18 Metamyelocytes % 1 % (0-2) 07/01/16 06:18 Myelocytes % 1 % (0-1) 07/01/16 06:18 Nucleated RBC % 0 07/01/16 06:18 Normal RBC Morphology Not Reportable 07/01/16 06:18 Elliptocytes 1+ 07/01/16 06:18 INR (Anticoag Therapy) 1.08 (0.89-1.11) 06/26/16 05:04 APTT 30.9 seconds (26.0-36.3) 06/26/16 05:04 Sodium 137 mmol/L (133-145) 07/01/16 11:08 Potassium 3.1 mmol/L (3.5-5.0) L 07/01/16 11:08 Chloride 110 mmol/L (101-111) 07/01/16 11:08 Carbon Dioxide 20 mmol/L (22-32) L 07/01/16 11:08 Anion Gap 7 mmol/L (2-11) 07/01/16 11:08 BUN 11 mg/dL (6-24) 07/01/16 11:08 Creatinine 1.23 mg/dL (0.67-1.17) H 07/01/16 11:08 Est GFR ( Amer) 72.1 (>60) 07/01/16 11:08 Est GFR (Non-Af Amer) 56.1 (>60) 07/01/16 11:08 BUN/Creatinine Ratio 8.9 (8-20) 07/01/16 11:08 Glucose 108 mg/dL (70-100) H 07/01/16 11:08 Lactic Acid 1.1 mmol/L (0.5-2.0) 06/25/16 11:25 Calcium 7.8 mg/dL (8.6-10.3) L 07/01/16 11:08 Magnesium 1.8 mg/dL (1.9-2.7) L 06/29/16 05:59 Total Bilirubin 0.60 mg/dL (0.2-1.0) 07/01/16 11:08 AST 18 U/L (13-39) 07/01/16 11:08 ALT 11 U/L (7-52) 07/01/16 11:08 Alkaline Phosphatase 49 U/L (34-104) 07/01/16 11:08 Troponin I 0.03 ng/mL (<0.04) 06/25/16 11:25 C-Reactive Protein 91.18 mg/L (< 5.00) H 07/01/16 11:08 C-React Prot High Sens 111.74 mg/L 06/26/16 05:04 Total Protein 4.9 g/dL (6.4-8.9) L 07/01/16 11:08 Albumin 2.5 g/dL (3.2-5.2) L 07/01/16 11:08 Globulin 2.4 g/dL (2-4) 07/01/16 11:08 Albumin/Globulin Ratio 1.0 (1-3) 07/01/16 11:08 Amylase 28 U/L (29-103) L 06/25/16 11:25 Lipase < 10 U/L (11.0-82.0) L 06/25/16 11:25 Urine Color Yellow 07/01/16 12:55 Urine Appearance Clear 07/01/16 12:55 Urine pH 5.0 (5-9) 07/01/16 12:55 Ur Specific [place] 1.042 (1.010-1.030) H 07/01/16 12:55 Urine Protein Negative (Negative) 07/01/16 12:55 Urine Ketones Trace (Negative) H 07/01/16 12:55 Urine Blood Negative (Negative) 07/01/16 12:55 Urine Nitrate Negative (Negative) 07/01/16 12:55 Urine Bilirubin Negative (Negative) 07/01/16 12:55 Urine Urobilinogen Negative (Negative) 07/01/16 12:55 Ur Leukocyte Esterase Negative (Negative) 07/01/16 12:55 Urine WBC (Auto) Absent (Absent) 06/25/16 13:55 Urine RBC (Auto) Absent (Absent) 06/25/16 13:55 Urine Bacteria Absent (Absent) 06/25/16 13:55 Hyaline Casts Present (Absent) H 06/25/16 13:55 Urine Glucose Negative (Negative) 07/01/16 12:55 Assessment: Sigmoid diverticulitis with abscess s/p percutaneous drainage Markedly elevated WBC today No evidence of sepsis or peritonitis Plan: CT repeated today show a new 5 cm pelvic abscess. Drain in good position with no residual cavity and the sigmoid diverticulitis appears to have less inflammation. Reviewed with IR (Dr. Casey) and patient--this new abscess is amenable to percutaneous drainage. At this point he has no urgent/emergent indication for surgery and I feel an attempt at drainage is the optimal route to take as this may avoid surgery and colostomy and the patient agrees Scheduled for tomorrow.
[2016-07-01] MEDS ORDERED: Potassium Chlor TAB* 20 MEQ TAB.ER PO ONE (17:14)
[2016-07-01] MEDS: KCL 10 MEQ/50 ML IVPREMIX* 10 MEQ/50 ML BAG IV SCH ×3 (18:47→23:30)
[2016-07-01] MEDS: Enoxaparin(*) 40 MG/0.4 ML SYR SUBCUT SCH (18:55)
[2016-07-01] MEDS: Atorvastatin* 10 MG TAB PO SCH (20:59)
[2016-07-01] MEDS: Terazosin CAP* 5 MG PO SCH (20:59)
[2016-07-01] MEDS ORDERED: KCL 10 MEQ/50 ML IVPREMIX* 10 MEQ/50 ML BAG ONE (23:29)
[2016-07-02] MEDS: NS 0.9% 1000 ML* 1,000 ML IV SCH ×3 (03:49→21:20)
[2016-07-02] MEDS: Piperac/Tazob 3.375 gm in NS* 3.375 GM/100 ML BAG IVPB SCH ×3 (05:06→22:23)
[2016-07-02 05:52] LABS: Hematocrit 33 % (42-52); Hemoglobin 10.9 g/dl (14.0-18.0); Mean Corpuscular HGB Conc 33 g/dl (31-36); Mean Corpuscular Hemoglobin 28 pg (27-31); Mean Corpuscular Volume 86 fL (80-94); Mean Platelet Volume 7 um3 (7.4-10.4); Red Blood Count 3.87 10^6/ul (4.0-5.4); Red Cell Distribution Width 15 % (10.5-15)
[2016-07-02 05:55] LABS: Comments Flag Yes; White Blood Count 31.1 10^3/ul (3.5-10.8)
[2016-07-02 06:07] LABS: BUN/Creatinine Ratio 9.6 (8-20); Calcium 7.6 mg/dL (8.6-10.3); EGFR African American 77.9 (>60); EGFR Non-African American 60.6 (>60); Potassium 3.1 mmol/L (3.5-5.0)
[2016-07-02] MEDS ORDERED: Naloxone* 0.4 MG/ML 1 ML VIAL ONE (09:06)
[2016-07-02] MEDS ORDERED: fentaNYL* 50 MCG/ML 2 ML VIAL (100 MCG VIAL) ONE ×2 (09:06→09:31)
[2016-07-02] MEDS: oxyCODONE/Acetamin 5/325 MG* TAB PO PRN (09:10)
[2016-07-02] MEDS: Nystatin OINT* 15 GM TOPICAL SCH ×2 (09:10→20:15)
[2016-07-02] MEDS ORDERED: Flumazenil* 0.1 MG/ML 5 ML MDV ONE (09:31)
[2016-07-02] MEDS ORDERED: Midazolam* 1 MG/ML 5 ML VIAL (5 MG) ONE (09:31)
[2016-07-02] MEDS: KCL 10 MEQ/50 ML IVPREMIX* 10 MEQ/50 ML BAG IV SCH ×4 (12:00→16:59)
[2016-07-02] MEDS ORDERED: Digoxin IV* 0.5 MG/2 ML AMP (0.25 MG/ML) IV ONE (12:00)
--- NOTE | 2016-07-02 14:20 | RAD ---
CPT II Codes: 6100F INDICATION: Right pelvic abscess likely secondary to diverticulitis. COMPARISON: Contrast-enhanced CT of the abdomen and pelvis dated July 01, 2016 PROCEDURE NOTE AND FINDINGS: The indication, alternatives therapies, benefits and risks of the procedure were explained to the patient and informed consent was obtained. The patient was brought to the CT suite and positioned in the prone position. A time out was preformed with the technologist and nursing staff. The patient was prepped and draped in the usual sterile fashion. The patient was given intravenous fentanyl and local anesthesia with 1% lidocaine. For the purpose of carefully delineating the neighboring rectosigmoid colon, the patient received approximately 300 mL of dilute rectal contrast. Using CT guidance a 10 [place] pigtail drainage catheter was inserted into the right pelvic fluid collection according to the trocar technique. Aspiration yielded approximately 20 mL of dark and partially fibrinous serous fluid. A sample was sent for laboratory analysis. The drain was secured to the skin and dressed with sterile gauze. The patient tolerated the procedure well without incident. The patient was transported to the holding area in stable condition. IMPRESSION: Uncomplicated CT guided right transgluteal pelvic abscess drain placement as described in the body of the report. Plan: 1. Follow-up laboratory analysis of sample. 2. The drain should be flushed with approximately 10 mL sterile saline every 8 hours. 3. Drainage bag to gravity.
[2016-07-02] MEDS ORDERED: Diltiazem TAB* 60 MG PO ONE (15:52)
--- NOTE | 2016-07-02 15:59 | PN ---
Subjective Date of Service: 07/02/16 Interval History: pt was seen after his IR procedure when he developed a. fib with RVR. No c/o CP or SOB. Has had no appetite Family History: Unchanged from Admission Social History: Unchanged from Admission Past Medical History: Unchanged from Admission Objective Active Medications: Acetaminophen (Tylenol Tab*) 650 mg PO Q4H PRN PRN Reason: FEVER/PAIN Last Admin: 06/27/16 16:29 Dose: 650 mg Atorvastatin Calcium (Lipitor*) 10 mg PO BEDTIME WESLEY PRN Reason: Protocol Last Admin: 07/01/16 20:59 Dose: 10 mg Diltiazem HCl (Cardizem Tab*) 60 mg PO ONCE ONE Stop: 07/02/16 15:53 Enoxaparin Sodium (Lovenox(*)) 40 mg SUBCUT Q24H [facility] Piperacillin Sod/Tazobactam Sod (Zosyn 3.375 Gm In Ns Premix*) 3.375 gm in 100 mls @ 25 mls/hr IVPB 0530,1330,2130 [facility] Last Admin: 07/02/16 14:32 Dose: 25 mls/hr Magnesium Sulfate/Dextrose (Magnesium Sulfate 1 Gm Iv*) 1 gm in 100 mls @ 200 mls/hr IV ONCE ONE Stop: 07/02/16 16:19 Sodium Chloride (Ns 0.9% 1000 Ml*) 1,000 mls @ 125 mls/hr IV PER RATE [facility] Morphine Sulfate (Morphine Inj (Syringe)*) 2 mg IV Q4H PRN PRN Reason: PAIN Nystatin (Nystatin Oint*) 1 applic TOPICAL BID [facility] Last Admin: 07/02/16 09:10 Dose: 1 applic Oxycodone/Acetaminophen (Percocet 5/325 Tab*) 1 tab PO Q4H PRN PRN Reason: Pain Last Admin: 07/02/16 09:10 Dose: 1 tab Quetiapine Fumarate (Seroquel Tab*) 25 mg PO DAILY PRN PRN Reason: AGITATION Last Admin: 06/30/16 20:36 Dose: 25 mg Terazosin HCl (Hytrin Cap*) 5 mg PO BEDTIME WES[facility] Last Admin: 07/01/16 20:59 Dose: 5 mg Vital Signs 07/01/16 07/01/16 07/01/16 16:59 20:00 20:01 Temperature Pulse Rate Respiratory 16 18 16 Rate Blood Pressure (mmHg) O2 Sat by Pulse Oximetry 07/01/16 07/01/16 07/02/16 22:01 23:48 07:22 Temperature 98.7 F 97.3 F Pulse Rate 86 89 Respiratory 16 18 Rate Blood Pressure 113/64 132/67 (mmHg) O2 Sat by Pulse 95 97 Oximetry 07/02/16 07/02/16 07/02/16 08:00 09:10 11:10 Temperature Pulse Rate Respiratory 12 12 16 Rate Blood Pressure (mmHg) O2 Sat by Pulse Oximetry 07/02/16 07/02/16 13:55 15:29 Temperature 98.2 F 97.2 F Pulse Rate 143 126 Respiratory 16 16 Rate Blood Pressure 103/69 94/53 (mmHg) O2 Sat by Pulse 98 92 Oximetry Oxygen Devices in Use Now: None Appearance: 86 yo M in NAD, aAOx3 Eyes: No Scleral Icterus, PERRLA Ears/Nose/Mouth/Throat: NL Teeth, Lips, Gums, Mucous Membranes Moist Neck: NL Appearance and Movements; NL JVP, Trachea Midline Respiratory: Symmetrical Chest Expansion and Respiratory Effort, Clear to Auscultation Cardiovascular: - - irregular, no murmur Abdominal: - - slightly disended, soft, tender mildy in lower abd, no rebound, no guarding. IR drain protruding from lower abd. Back not examined Extremities: No Clubbing, Cyanosis, - - +1 pitting pedal edema Neurological: Alert and Oriented x 3, NL Muscle Strength and Tone Result Diagrams: 07/02/16 05:18 07/02/16 05:18 Additional Lab and Data: Lab Results 06/25/16 Range/Units 11:25 WBC 17.2 H (3.5-10.8) 10^3/ul RBC 4.47 (4.0-5.4) 10^6/ul Hgb 12.7 L (14.0-18.0) g/dl Hct 39 L (42-52) % MCV 86 (80-94) fL MCH 28 (27-31) pg MCHC 33 (31-36) g/dl RDW 15 (10.5-15) % Plt Count 168 (150-450) 10^3/ul MPV 9 (7.4-10.4) um3 Neut % (Auto) 89.5 H (38-83) % Lymph % (Auto) 3.6 L (25-47) % [place] % (Auto) 6.5 (1-9) % Eos % (Auto) 0.1 (0-6) % Baso % (Auto) 0.3 (0-2) % Absolute Neuts (auto) 15.4 H (1.5-7.7) 10^3/ul Absolute Lymphs (auto) 0.6 L (1.0-4.8) 10^3/ul Absolute Monos (auto) 1.1 H (0-0.8) 10^3/ul Absolute Eos (auto) 0 (0-0.6) 10^3/ul Absolute Basos (auto) 0.1 (0-0.2) 10^3/ul Absolute Nucleated RBC 0 10^3/ul Nucleated RBC % 0 Microbiology and Other Data: Microbiology 06/25/16 22:20 Nasal Screen MRSA (PCR)(NOBLE) - Final Nasal Mrsa Positive Assess/Plan/Problems-Billing Assessment: Mr. German is an 86 yo male with a PMH of CAD, stage 3 CKD, BPH, and Olson's esophagus who presented to the ED on 06/25/16 with abdominal pain that was found to be secondary to diverticulitis with associated perforation and early abscess. - Patient Problems (1) Diverticulitis of colon with perforation Comment: S/p percutaneous drain placement 06/26 (first drain ) and on 07/02/16 second drain) Appreciate surgical input Continue Zosyn . Cx growing strep anginosus and E. Coli(obtained from first drain) Continue IVF, pain management Continue drain care teaching (2) Atrial fibrillation with rapid ventricular response Comment: Loaded with digoxin. low SBP limits the use of BB and Cardizem Otherwise asymptomatic suspect secondary to electrolyte abn and stress rlated to ongoing infection Repleting K and mag will check Echo. no anticoagulation for now due to recent IR za. (3) CAD (coronary artery disease) Comment: Stable. Continue statin. (4) CKD (chronic kidney disease) stage 3, GFR 30-59 ml/min Comment: Appears dehydrated, restart IVF Creatinine within baseline. (5) BPH (benign prostatic hyperplasia) Comment: Continue terazosin. Closely monitor BP in the presence of acute infection. (6) DVT prophylaxis Comment: SQ Lovenox Status and Disposition: Inpatient admission. Discharge planning in progress.
[2016-07-02] MEDS: Enoxaparin(*) 40 MG/0.4 ML SYR SUBCUT SCH (16:23)
[2016-07-02] MEDS ORDERED: Magnesium Sulfate 1 GM IV* 1 GM/100 ML BAG IV ONE (16:30)
[2016-07-02] MEDS ORDERED: KCL 10 MEQ/50 ML IVPREMIX* 10 MEQ/50 ML BAG ONE (16:55)
--- NOTE | 2016-07-02 18:25 | PN ---
Progress Note - Progress Note SOAP: Subjective: Feels much better after abscess has been drained-having multiple loose stools. No abdominal pain Went into AFIB after the procedure now on telemetry Objective: Temp Pulse Resp BP Pulse Ox 97.2 F 126 16 94/53 92 07/02/16 15:29 07/02/16 15:29 07/02/16 17:02 07/02/16 15:29 07/02/16 15:29 PEX: Comfortable sitting up on side of bed Abd is soft and non-distended. Two drains are in place Assessment: Sigmoid diverticulitis with two abscesses s/p percutaneous drainage. Leukocytosis New onset afib Plan: Continue IV antibiotics and observation Await cultures Clear liquids Recheck labs in AM
[2016-07-02] MEDS ORDERED: Diltiazem DRIP* 100 MG/100 ML ADDV.BAG IVPB SCH (19:00)
[2016-07-02] MEDS ORDERED: Potassium Chloride LIQUID* 20 MEQ PACKET PO ONE (19:00)
[2016-07-02] MEDS ORDERED: Digoxin IV* 0.5 MG/2 ML AMP (0.25 MG/ML) IV SLOW PU ONE (19:24)
[2016-07-02] MEDS: Acetaminophen TAB* 325 MG PO PRN (19:30)
[2016-07-02] MEDS: Terazosin CAP* 5 MG PO SCH (20:14)
[2016-07-02] MEDS: Atorvastatin* 10 MG TAB PO SCH (20:14)
[2016-07-02] MEDS: QUEtiapine TAB* 25 MG PO PRN (22:21)
[2016-07-03] MEDS: oxyCODONE/Acetamin 5/325 MG* TAB PO PRN (02:17)
[2016-07-03 06:07] LABS: Hematocrit 31 % (42-52); Mean Corpuscular HGB Conc 33 g/dl (31-36); Mean Corpuscular Hemoglobin 28 pg (27-31); Mean Corpuscular Volume 86 fL (80-94); Mean Platelet Volume 7 um3 (7.4-10.4); Red Blood Count 3.59 10^6/ul (4.0-5.4); Red Cell Distribution Width 16 % (10.5-15); White Blood Count 20.6 10^3/ul (3.5-10.8)
[2016-07-03] MEDS: Piperac/Tazob 3.375 gm in NS* 3.375 GM/100 ML BAG IVPB SCH ×3 (06:18→19:59)
[2016-07-03 06:27] LABS: BUN/Creatinine Ratio 12.6 (8-20); Calcium 7.4 mg/dL (8.6-10.3); EGFR African American 74.9 (>60); EGFR Non-African American 58.2 (>60); Magnesium 2.1 mg/dL (1.9-2.7); Potassium 3.6 mmol/L (3.5-5.0)
[2016-07-03] MEDS ORDERED: Potassium Chlor TAB* 20 MEQ TAB.ER PO ONE (08:36)
[2016-07-03] MEDS: Nystatin OINT* 15 GM TOPICAL SCH ×2 (09:17→20:55)
--- NOTE | 2016-07-03 11:50 | ECHO ---
Patient: ASIA CARRASCO [facility] Rec#: [id number] : 1930 Date: 07/03/2016 Age: 86y Height: 172.72 cm / 68.0 in Weight: 63.5 kg / 140.0 lbs Sex: M BSA: 1.76 Room#: [facility] Admit Date#: 06/25/2016 Type: Inpatient Referring: Sofy Ritchie MD Reading: Basia Moreland MD Android Architect: Susana Alcantara KORY CC: Gadiel Jennings MD Transthoracic Echocardiogram Indication: A-fib BP: 117/56 HR: 76 Rhythm: NSR with PACs Findings History: CAD,s/p CABG,CKD stage III,Olson's esophagus. Technical Comments: The study is technically difficult. Pt has a pectus excatatum. Study completed at 0915. Apical windows are nonstandard. Left Ventricle: The left ventricular chamber size is normal. Septal wall hypertrophy is observed.mild prominance. Global left ventricular wall motion and contractility are within normal limits. The estimated ejection fraction is 50-55%. There is no consistent Doppler evidence of clinically significant diastolic dysfunction.Heavy MAC affects data. Left Atrium: The left atrium is mildly dilated. Right Ventricle: The right ventricle is not well visualized. The right ventricular global systolic function is mildly reduced. Right Atrium: The right atrium is not well visualized. Aortic Valve: The aortic valve is trileaflet. Mild aortic cusp sclerosis is present. There is no evidence of aortic regurgitation. There is borderline aortic stenosis present. The mean gradient of the aortic valve is 7.59 mmHg. The aortic valve area, by VTI's, is calculated at 2.3 cm2. Mitral Valve: There is mitral annular calcification. The mitral valve leaflets are mildly thickened. There is mild mitral regurgitation. There is no evidence of mitral stenosis. Tricuspid Valve: The tricuspid valve structure is not well visualized. Pulmonic Valve: The pulmonic valve appears normal. There is no evidence of pulmonic regurgitation. There is no pulmonic stenosis. Pericardium: There is no pericardial effusion. A left pleural effusion is present. There is a moderate pleural effusion. Aorta: There is no dilatation of the ascending aorta. There is no dilatation of the aortic arch. There is mild dilatation of the aortic root. Venous: The venous system is not well visualized. Conclusions The left ventricular chamber size is normal. Global left ventricular wall motion and contractility are within normal limits. The estimated ejection fraction is 50-55%. The right ventricular global systolic function is mildly reduced. There is borderline aortic stenosis present. There is mitral annular calcification. There is mild mitral regurgitation. There is a pleural effusion. Adquate study quality, body habitus affects quality. No prior echo to compare. Measurements Name Value Normal Range RVIDd (AP) 2D 3 cm (0.9 - 2.6) IVSd (2D) 1.1 cm (0.6 - 1) LVPWd (2D) 1 cm (0.6 - 1) LVIDd (2D) 3.6 cm (3.6 - 5.4) LVIDs (2D) 2.7 cm - LV FS (2D) 25 % (25 - 45) Aortic Annulus 2.3 cm (1.4 - 2.6) Ao root diameter (2D) 3.6 cm (2.1 - 3.5) Ascending Ao 3.2 cm (2.1 - 3.4) Aortic arch 2.3 cm (1.8 - 3.4) Descending Ao 0.6 cm - LA dimension (AP) 2D 4.7 cm (2.3 - 3.8) Name Value Normal Range MV E-wave Vmax 1.7 m/sec - MV deceleration time 315 msec - MV A-wave Vmax 1.5 m/sec - MV E:A ratio 1.18 ratio - LV septal e' Vmax 0.08 m/sec - LV lateral e' Vmax 0.08 m/sec - LV E:e' septal ratio 21.25 ratio - LV E:e' lateral ratio 21.25 ratio - Name Value Normal Range AV Vmax 1.9 m/sec - AV VTI 46.8 cm - AV peak gradient 15.13 mmHg - AV mean gradient 7.59 mmHg - LVOT diameter 2.2 cm - LVOT Vmax 1.1 m/sec - LVOT VTI 29.5 cm - LVOT peak gradient 4.66 mmHg - LVOT mean gradient 2.55 mmHg - SV LVOT 109 ml - CANDE (continuity Vmax) 2.2 cm2 - CANDE (continuity VTI) 2.3 cm2 - Name Value Normal Range MV Vmax 1.8 m/sec - MV VTI 58 cm - MV peak gradient 12.83 mmHg - MV mean gradient 5.05 mmHg - MV PHT 85 msec - MVA (PHT) 2.6 cm2 - MVA (continuity VTI) 1.9 cm2 - Name Value Normal Range PV Vmax 0.9 m/sec - PV peak gradient 2.95 mmHg -
--- NOTE | 2016-07-03 15:38 | PN ---
Subjective Date of Service: 07/03/16 Interval History: Pt feels well. c/o "minimal abd pain". Loose BM's converted from A. fib to NSR last night on Cardizem gtt Family History: Unchanged from Admission Social History: Unchanged from Admission Past Medical History: Unchanged from Admission Objective Active Medications: Acetaminophen (Tylenol Tab*) 650 mg PO Q4H PRN PRN Reason: FEVER/PAIN Last Admin: 07/02/16 19:30 Dose: 650 mg Atorvastatin Calcium (Lipitor*) 10 mg PO BEDTIME [facility] PRN Reason: Protocol Last Admin: 07/02/16 20:14 Dose: 10 mg Enoxaparin Sodium (Lovenox(*)) 40 mg SUBCUT Q24H [facility] Last Admin: 07/02/16 16:23 Dose: 40 mg Piperacillin Sod/Tazobactam Sod (Zosyn 3.375 Gm In Ns Premix*) 3.375 gm in 100 mls @ 25 mls/hr IVPB 0530,1330,2130 [facility] Last Admin: 07/03/16 13:05 Dose: 25 mls/hr Lactated Ringer's (Lactated Ringers 1000 Ml Bag*) 1,000 mls @ 75 mls/hr IV PER RATE [facility] Last Admin: 07/03/16 09:08 Dose: 75 mls/hr Metoprolol Tartrate (Lopressor Tab*) 12.5 mg PO Q12HR [facility] Morphine Sulfate (Morphine Inj (Syringe)*) 2 mg IV Q4H PRN PRN Reason: PAIN Nystatin (Nystatin Oint*) 1 applic TOPICAL BID [facility] Last Admin: 07/03/16 09:17 Dose: 1 applic Oxycodone/Acetaminophen (Percocet 5/325 Tab*) 1 tab PO Q4H PRN PRN Reason: Pain Last Admin: 07/03/16 02:17 Dose: 1 tab Quetiapine Fumarate (Seroquel Tab*) 25 mg PO DAILY PRN PRN Reason: AGITATION Last Admin: 07/02/16 22:21 Dose: 25 mg Terazosin HCl (Hytrin Cap*) 5 mg PO BEDTIME [facility] Last Admin: 07/02/16 20:14 Dose: 5 mg Vital Signs 07/02/16 07/02/16 07/02/16 17:02 19:03 19:20 Temperature Pulse Rate 128 127 Respiratory 16 27 21 Rate Blood Pressure 97/63 (mmHg) O2 Sat by Pulse 94 94 Oximetry 07/02/16 07/02/16 07/02/16 19:25 19:30 19:38 Temperature Pulse Rate 127 Respiratory 28 28 Rate Blood Pressure 84/60 111/66 112/61 (mmHg) O2 Sat by Pulse 94 Oximetry 07/02/16 07/02/16 07/02/16 19:45 20:00 20:06 Temperature 98.0 F Pulse Rate 129 Respiratory 17 26 Rate Blood Pressure 102/60 (mmHg) O2 Sat by Pulse Oximetry 07/02/16 07/02/16 07/02/16 20:25 20:36 20:50 Temperature Pulse Rate 124 122 123 Respiratory 30 28 24 Rate Blood Pressure 109/70 108/71 102/67 (mmHg) O2 Sat by Pulse 95 95 95 Oximetry 07/02/16 07/02/16 07/02/16 21:00 21:16 21:27 Temperature Pulse Rate 125 126 125 Respiratory 27 23 23 Rate Blood Pressure 95/65 89/58 91/61 (mmHg) O2 Sat by Pulse 95 93 93 Oximetry 07/02/16 07/02/16 07/02/16 21:30 21:45 22:00 Temperature Pulse Rate 126 126 99 Respiratory 21 20 26 Rate Blood Pressure 95/55 107/62 138/59 (mmHg) O2 Sat by Pulse 93 93 94 Oximetry 07/02/16 07/02/16 07/02/16 22:30 23:00 23:30 Temperature Pulse Rate 78 72 Respiratory 22 29 17 Rate Blood Pressure 119/69 119/68 115/60 (mmHg) O2 Sat by Pulse 94 93 Oximetry 07/02/16 07/03/16 07/03/16 23:42 00:00 00:01 Temperature Pulse Rate 88 95 94 Respiratory 26 23 25 Rate Blood Pressure 128/94 (mmHg) O2 Sat by Pulse 93 93 94 Oximetry 07/03/16 07/03/16 07/03/16 00:45 01:00 02:00 Temperature 98.4 F Pulse Rate 69 89 Respiratory 20 13 19 Rate Blood Pressure 114/62 120/62 (mmHg) O2 Sat by Pulse 93 90 Oximetry 07/03/16 07/03/16 07/03/16 02:17 03:00 04:00 Temperature Pulse Rate 62 61 Respiratory 20 12 14 Rate Blood Pressure 108/62 111/45 (mmHg) O2 Sat by Pulse 95 94 Oximetry 07/03/16 07/03/16 07/03/16 04:40 05:00 06:00 Temperature 98.7 F Pulse Rate 66 57 Respiratory 20 24 12 Rate Blood Pressure 109/59 115/55 (mmHg) O2 Sat by Pulse 95 94 Oximetry 07/03/16 07/03/16 07/03/16 07:00 07:42 07:55 Temperature 97.9 F Pulse Rate 61 Respiratory 15 22 Rate Blood Pressure 117/56 (mmHg) O2 Sat by Pulse 93 Oximetry 07/03/16 07/03/16 07/03/16 08:00 08:49 08:52 Temperature Pulse Rate 59 79 74 Respiratory 12 22 19 Rate Blood Pressure 118/53 127/63 124/56 (mmHg) O2 Sat by Pulse 93 92 94 Oximetry 07/03/16 07/03/16 07/03/16 08:53 09:00 10:00 Temperature Pulse Rate 75 60 105 Respiratory 17 14 22 Rate Blood Pressure 131/58 124/56 129/73 (mmHg) O2 Sat by Pulse 92 93 93 Oximetry 07/03/16 11:16 Temperature 97.6 F Pulse Rate 89 Respiratory 18 Rate Blood Pressure 136/56 (mmHg) O2 Sat by Pulse 97 Oximetry Oxygen Devices in Use Now: None Appearance: 86 yo M in NAd, AAOx3 Eyes: No Scleral Icterus, PERRLA Ears/Nose/Mouth/Throat: NL Teeth, Lips, Gums, Mucous Membranes Moist Neck: NL Appearance and Movements; NL JVP, Trachea Midline Respiratory: Symmetrical Chest Expansion and Respiratory Effort, Clear to Auscultation Cardiovascular: NL Sounds; No Murmurs; No JVD, RRR Abdominal: - - one IR drain anteriorly in suprabubic are, one placed in the back , both draining serous fluid. Abd soft, minimally tender in suprapubic area, no rebound, no guarding Lymphatic: No Cervical Adenopathy Extremities: No Clubbing, Cyanosis, - - trace pedal edema b/l Neurological: Alert and Oriented x 3, NL Muscle Strength and Tone Result Diagrams: 07/03/16 05:22 07/03/16 05:23 Additional Lab and Data: Lab Results 06/25/16 Range/Units 11:25 WBC 17.2 H (3.5-10.8) 10^3/ul RBC 4.47 (4.0-5.4) 10^6/ul Hgb 12.7 L (14.0-18.0) g/dl Hct 39 L (42-52) % MCV 86 (80-94) fL MCH 28 (27-31) pg MCHC 33 (31-36) g/dl RDW 15 (10.5-15) % Plt Count 168 (150-450) 10^3/ul MPV 9 (7.4-10.4) um3 Neut % (Auto) 89.5 H (38-83) % Lymph % (Auto) 3.6 L (25-47) % [place] % (Auto) 6.5 (1-9) % Eos % (Auto) 0.1 (0-6) % Baso % (Auto) 0.3 (0-2) % Absolute Neuts (auto) 15.4 H (1.5-7.7) 10^3/ul Absolute Lymphs (auto) 0.6 L (1.0-4.8) 10^3/ul Absolute Monos (auto) 1.1 H (0-0.8) 10^3/ul Absolute Eos (auto) 0 (0-0.6) 10^3/ul Absolute Basos (auto) 0.1 (0-0.2) 10^3/ul Absolute Nucleated RBC 0 10^3/ul Nucleated RBC % 0 Microbiology and Other Data: Microbiology 06/25/16 22:20 Nasal Screen MRSA (PCR)(NOBLE) - Final Nasal Mrsa Positive Assess/Plan/Problems-Billing Assessment: Mr. German is an 86 yo male with a PMH of CAD, stage 3 CKD, BPH, and Olson's esophagus who presented to the ED on 06/25/16 with abdominal pain that was found to be secondary to diverticulitis with associated perforation and early abscess. - Patient Problems (1) Diverticulitis of colon with perforation Comment: S/p percutaneous drain placement 06/26 (first drain ) and on 07/02/16 second drain) Appreciate surgical input Continue Zosyn . Cx growing strep anginosus and E. Coli(obtained from first drain) Continue IVF, pain management Continue drain care teaching (2) Atrial fibrillation with rapid ventricular response Comment: Loaded with digoxin and converted on Cardizem gtt within hours on -suepct related to hypokalemia. will start low dose BB and titrate as tolerated echo shows EF 55% (3) CAD (coronary artery disease) Comment: Stable. Continue statin. (4) CKD (chronic kidney disease) stage 3, GFR 30-59 ml/min Comment: stop IVF, tolerating PO diet Creatinine within baseline. (5) BPH (benign prostatic hyperplasia) Comment: Continue terazosin. (6) DVT prophylaxis Comment: SQ lovenox Status and Disposition: Inpatient admission. Discharge planning in progress.
[2016-07-03] MEDS: Enoxaparin(*) 40 MG/0.4 ML SYR SUBCUT SCH (16:43)
--- NOTE | 2016-07-03 17:51 | PN ---
Progress Note - Progress Note SOAP: Subjective: No complaints of abdominal pain and having multiple loose BM's Back in sinus rhythm now Tolerating full liquids Objective: Temp Pulse Resp BP Pulse Ox 97.5 F 75 17 143/79 96 07/03/16 15:39 07/03/16 15:39 07/03/16 15:39 07/03/16 15:39 07/03/16 15:39 PEX: Comfortable at bedside abd is soft and non-distended. Drains in place Laboratory Last Values WBC 20.6 10^3/ul (3.5-10.8) H 07/03/16 05:22 RBC 3.59 10^6/ul (4.0-5.4) L 07/03/16 05:22 Hgb 10.0 g/dl (14.0-18.0) L 07/03/16 05:22 Hct 31 % (42-52) L 07/03/16 05:22 MCV 86 fL (80-94) 07/03/16 05:22 MCH 28 pg (27-31) 07/03/16 05:22 MCHC 33 g/dl (31-36) 07/03/16 05:22 RDW 16 % (10.5-15) H 07/03/16 05:22 Plt Count 228 10^3/ul (150-450) 07/03/16 05:22 MPV 7 um3 (7.4-10.4) L 07/03/16 05:22 Immature Gran % (Auto) 3 % (0-9) 07/01/16 06:18 Neut % (Auto) 93.6 % (38-83) H 07/02/16 05:18 Lymph % (Auto) 2.7 % (25-47) L 07/02/16 05:18 [place] % (Auto) 3.1 % (1-9) 07/02/16 05:18 Eos % (Auto) 0.5 % (0-6) 07/02/16 05:18 Baso % (Auto) 0.1 % (0-2) 07/02/16 05:18 Absolute Neuts (auto) 29.1 10^3/ul (1.5-7.7) H 07/02/16 05:18 Absolute Lymphs (auto) 0.8 10^3/ul (1.0-4.8) L 07/02/16 05:18 Absolute Monos (auto) 1.0 10^3/ul (0-0.8) H 07/02/16 05:18 Absolute Eos (auto) 0.2 10^3/ul (0-0.6) 07/02/16 05:18 Absolute Basos (auto) 0 10^3/ul (0-0.2) 07/02/16 05:18 Absolute Nucleated RBC 0 10^3/ul 07/02/16 05:18 Neutrophils % 91 % (38-83) H 07/01/16 06:18 Band Neutrophils % 1 % (0-8) 07/01/16 06:18 Lymphocytes % 3 % (25-47) L 07/01/16 06:18 Monocytes % 2 % (0-13) 07/01/16 06:18 Eosinophils % 1 % (0-6) 07/01/16 06:18 Metamyelocytes % 1 % (0-2) 07/01/16 06:18 Myelocytes % 1 % (0-1) 07/01/16 06:18 Nucleated RBC % 0 07/02/16 05:18 Normal RBC Morphology Not Reportable 07/01/16 06:18 Elliptocytes 1+ 07/01/16 06:18 INR (Anticoag Therapy) 1.08 (0.89-1.11) 06/26/16 05:04 APTT 30.9 seconds (26.0-36.3) 06/26/16 05:04 Sodium 141 mmol/L (133-145) 07/03/16 05:23 Potassium 3.6 mmol/L (3.5-5.0) 07/03/16 05:23 Chloride 118 mmol/L (101-111) H 07/03/16 05:23 Carbon Dioxide 16 mmol/L (22-32) L 07/03/16 05:23 Anion Gap 7 mmol/L (2-11) 07/03/16 05:23 BUN 15 mg/dL (6-24) 07/03/16 05:23 Creatinine 1.19 mg/dL (0.67-1.17) H 07/03/16 05:23 Est GFR ( Amer) 74.9 (>60) 07/03/16 05:23 Est GFR (Non-Af Amer) 58.2 (>60) 07/03/16 05:23 BUN/Creatinine Ratio 12.6 (8-20) 07/03/16 05:23 Glucose 90 mg/dL (70-100) 07/03/16 05:23 Lactic Acid 1.1 mmol/L (0.5-2.0) 06/25/16 11:25 Calcium 7.4 mg/dL (8.6-10.3) L 07/03/16 05:23 Magnesium 2.1 mg/dL (1.9-2.7) 07/03/16 05:23 Total Bilirubin 0.60 mg/dL (0.2-1.0) 07/01/16 11:08 AST 18 U/L (13-39) 07/01/16 11:08 ALT 11 U/L (7-52) 07/01/16 11:08 Alkaline Phosphatase 49 U/L (34-104) 07/01/16 11:08 Troponin I 0.03 ng/mL (<0.04) 06/25/16 11:25 C-Reactive Protein 91.18 mg/L (< 5.00) H 07/01/16 11:08 C-React Prot High Sens 111.74 mg/L 06/26/16 05:04 Total Protein 4.9 g/dL (6.4-8.9) L 07/01/16 11:08 Albumin 2.5 g/dL (3.2-5.2) L 07/01/16 11:08 Globulin 2.4 g/dL (2-4) 07/01/16 11:08 Albumin/Globulin Ratio 1.0 (1-3) 07/01/16 11:08 Prealbumin 5 mg/dL (18-38) L 07/02/16 05:18 Amylase 28 U/L (29-103) L 06/25/16 11:25 Lipase < 10 U/L (11.0-82.0) L 06/25/16 11:25 Urine Color Yellow 07/01/16 12:55 Urine Appearance Clear 07/01/16 12:55 Urine pH 5.0 (5-9) 07/01/16 12:55 Ur Specific [place] 1.042 (1.010-1.030) H 07/01/16 12:55 Urine Protein Negative (Negative) 07/01/16 12:55 Urine Ketones Trace (Negative) H 07/01/16 12:55 Urine Blood Negative (Negative) 07/01/16 12:55 Urine Nitrate Negative (Negative) 07/01/16 12:55 Urine Bilirubin Negative (Negative) 07/01/16 12:55 Urine Urobilinogen Negative (Negative) 07/01/16 12:55 Ur Leukocyte Esterase Negative (Negative) 07/01/16 12:55 Urine WBC (Auto) Absent (Absent) 06/25/16 13:55 Urine RBC (Auto) Absent (Absent) 06/25/16 13:55 Urine Bacteria Absent (Absent) 06/25/16 13:55 Hyaline Casts Present (Absent) H 06/25/16 13:55 Urine Glucose Negative (Negative) 07/01/16 12:55 Assessment: Sigmoid diverticulitis with abscess X 2 s/p percutaneous drainage of both abscesses. Afib-converted WBC decreased Plan: Continue IV abx and drainage Full liquids
[2016-07-03] MEDS: Atorvastatin* 10 MG TAB PO SCH (19:55)
[2016-07-03] MEDS: Metoprolol Tartrate TAB* 25 MG PO SCH (19:56)
[2016-07-03] MEDS: Terazosin CAP* 5 MG PO SCH (19:56)
[2016-07-04] MEDS: Piperac/Tazob 3.375 gm in NS* 3.375 GM/100 ML BAG IVPB SCH ×2 (05:15→14:01)
[2016-07-04 06:11] LABS: Hematocrit 35 % (42-52); Hemoglobin 11.4 g/dl (14.0-18.0); Mean Corpuscular HGB Conc 32 g/dl (31-36); Mean Corpuscular Hemoglobin 28 pg (27-31); Mean Corpuscular Volume 86 fL (80-94); Mean Platelet Volume 7 um3 (7.4-10.4); Red Cell Distribution Width 16 % (10.5-15)
[2016-07-04 07:14] LABS: BUN/Creatinine Ratio 10.3 (8-20); Calcium 7.7 mg/dL (8.6-10.3); EGFR African American 84.7 (>60); EGFR Non-African American 65.8 (>60); Potassium 3.6 mmol/L (3.5-5.0)
[2016-07-04] MEDS: Metoprolol Tartrate TAB* 25 MG PO SCH ×2 (10:26→20:09)
--- NOTE | 2016-07-04 10:32 | PN ---
Progress Note - Progress Note SOAP: Subjective: Without complaint today although he does not have much appetite. Bowels are moving No abdominal pain Objective: Temp Pulse Resp BP Pulse Ox 98.4 F 102 16 106/57 97 07/04/16 08:10 07/04/16 08:10 07/04/16 08:10 07/04/16 08:10 07/04/16 08:[address], both with minimal herrera fluid in bags. PEX: Abdomen is soft and non-distended. Bowel sounds are present. Mild LLQ pain without mass or guarding. Both drains are in place without redness or inflammation at exit sites Laboratory Last Values WBC 14.0 10^3/ul (3.5-10.8) H 07/04/16 05:39 RBC 4.10 10^6/ul (4.0-5.4) 07/04/16 05:39 Hgb 11.4 g/dl (14.0-18.0) L 07/04/16 05:39 Hct 35 % (42-52) L 07/04/16 05:39 MCV 86 fL (80-94) 07/04/16 05:39 MCH 28 pg (27-31) 07/04/16 05:39 MCHC 32 g/dl (31-36) 07/04/16 05:39 RDW 16 % (10.5-15) H 07/04/16 05:39 Plt Count 269 10^3/ul (150-450) 07/04/16 05:39 MPV 7 um3 (7.4-10.4) L 07/04/16 05:39 Immature Gran % (Auto) 3 % (0-9) 07/01/16 06:18 Neut % (Auto) 93.6 % (38-83) H 07/02/16 05:18 Lymph % (Auto) 2.7 % (25-47) L 07/02/16 05:18 [place] % (Auto) 3.1 % (1-9) 07/02/16 05:18 Eos % (Auto) 0.5 % (0-6) 07/02/16 05:18 Baso % (Auto) 0.1 % (0-2) 07/02/16 05:18 Absolute Neuts (auto) 29.1 10^3/ul (1.5-7.7) H 07/02/16 05:18 Absolute Lymphs (auto) 0.8 10^3/ul (1.0-4.8) L 07/02/16 05:18 Absolute Monos (auto) 1.0 10^3/ul (0-0.8) H 07/02/16 05:18 Absolute Eos (auto) 0.2 10^3/ul (0-0.6) 07/02/16 05:18 Absolute Basos (auto) 0 10^3/ul (0-0.2) 07/02/16 05:18 Absolute Nucleated RBC 0 10^3/ul 07/02/16 05:18 Neutrophils % 91 % (38-83) H 07/01/16 06:18 Band Neutrophils % 1 % (0-8) 07/01/16 06:18 Lymphocytes % 3 % (25-47) L 07/01/16 06:18 Monocytes % 2 % (0-13) 07/01/16 06:18 Eosinophils % 1 % (0-6) 07/01/16 06:18 Metamyelocytes % 1 % (0-2) 07/01/16 06:18 Myelocytes % 1 % (0-1) 07/01/16 06:18 Nucleated RBC % 0 07/02/16 05:18 Normal RBC Morphology Not Reportable 07/01/16 06:18 Elliptocytes 1+ 07/01/16 06:18 INR (Anticoag Therapy) 1.08 (0.89-1.11) 06/26/16 05:04 APTT 30.9 seconds (26.0-36.3) 06/26/16 05:04 Sodium 143 mmol/L (133-145) 07/04/16 05:39 Potassium 3.6 mmol/L (3.5-5.0) 07/04/16 05:39 Chloride 116 mmol/L (101-111) H 07/04/16 05:39 Carbon Dioxide 21 mmol/L (22-32) L 07/04/16 05:39 Anion Gap 6 mmol/L (2-11) 07/04/16 05:39 BUN 11 mg/dL (6-24) 07/04/16 05:39 Creatinine 1.07 mg/dL (0.67-1.17) 07/04/16 05:39 Est GFR ( Amer) 84.7 (>60) 07/04/16 05:39 Est GFR (Non-Af Amer) 65.8 (>60) 07/04/16 05:39 BUN/Creatinine Ratio 10.3 (8-20) 07/04/16 05:39 Glucose 92 mg/dL (70-100) 07/04/16 05:39 Lactic Acid 1.1 mmol/L (0.5-2.0) 06/25/16 11:25 Calcium 7.7 mg/dL (8.6-10.3) L 07/04/16 05:39 Magnesium 2.1 mg/dL (1.9-2.7) 07/03/16 05:23 Total Bilirubin 0.60 mg/dL (0.2-1.0) 07/01/16 11:08 AST 18 U/L (13-39) 07/01/16 11:08 ALT 11 U/L (7-52) 07/01/16 11:08 Alkaline Phosphatase 49 U/L (34-104) 07/01/16 11:08 Troponin I 0.03 ng/mL (<0.04) 06/25/16 11:25 C-Reactive Protein 91.18 mg/L (< 5.00) H 07/01/16 11:08 C-React Prot High Sens 111.74 mg/L 06/26/16 05:04 Total Protein 4.9 g/dL (6.4-8.9) L 07/01/16 11:08 Albumin 2.5 g/dL (3.2-5.2) L 07/01/16 11:08 Globulin 2.4 g/dL (2-4) 07/01/16 11:08 Albumin/Globulin Ratio 1.0 (1-3) 07/01/16 11:08 Prealbumin 5 mg/dL (18-38) L 07/02/16 05:18 Amylase 28 U/L (29-103) L 06/25/16 11:25 Lipase < 10 U/L (11.0-82.0) L 06/25/16 11:25 Urine Color Yellow 07/01/16 12:55 Urine Appearance Clear 07/01/16 12:55 Urine pH 5.0 (5-9) 07/01/16 12:55 Ur Specific [place] 1.042 (1.010-1.030) H 07/01/16 12:55 Urine Protein Negative (Negative) 07/01/16 12:55 Urine Ketones Trace (Negative) H 07/01/16 12:55 Urine Blood Negative (Negative) 07/01/16 12:55 Urine Nitrate Negative (Negative) 07/01/16 12:55 Urine Bilirubin Negative (Negative) 07/01/16 12:55 Urine Urobilinogen Negative (Negative) 07/01/16 12:55 Ur Leukocyte Esterase Negative (Negative) 07/01/16 12:55 Urine WBC (Auto) Absent (Absent) 06/25/16 13:55 Urine RBC (Auto) Absent (Absent) 06/25/16 13:55 Urine Bacteria Absent (Absent) 06/25/16 13:55 Hyaline Casts Present (Absent) H 06/25/16 13:55 Urine Glucose Negative (Negative) 07/01/16 12:55 Cultures noted-- Assessment: Sigmoid diverticulitis with abscesses s/p percutaneous drainage of both abscesses. WBC trending down Plan: Continue IV antibiotics and drainage Full liquids Plan follow up CT on Friday 07/07]
[2016-07-04] MEDS: Nystatin OINT* 15 GM TOPICAL SCH ×2 (12:16→20:10)
--- NOTE | 2016-07-04 14:53 | PN ---
Subjective Date of Service: 07/04/16 Interval History: Pt feels well. still has frequent loose stools. Denies abd pain Telem shows sinus arrhythmia, no more a. fib evident Family History: Unchanged from Admission Social History: Unchanged from Admission Past Medical History: Unchanged from Admission Objective Active Medications: Acetaminophen (Tylenol Tab*) 650 mg PO Q4H PRN PRN Reason: FEVER/PAIN Last Admin: 07/02/16 19:30 Dose: 650 mg Atorvastatin Calcium (Lipitor*) 10 mg PO BEDTIME [facility] PRN Reason: Protocol Last Admin: 07/03/16 19:55 Dose: 10 mg Enoxaparin Sodium (Lovenox(*)) 40 mg SUBCUT Q24H [facility] Last Admin: 07/03/16 16:43 Dose: 40 mg Ceftriaxone Sodium 1,000 mg/ (Sodium Chloride) 50 mls @ 200 mls/hr IVPB Q24H [facility] Metoprolol Tartrate (Lopressor Tab*) 12.5 mg PO Q12HR [facility] Last Admin: 07/04/16 10:26 Dose: 12.5 mg Metronidazole (Flagyl Tab*) 500 mg PO TID [facility] Morphine Sulfate (Morphine Inj (Syringe)*) 2 mg IV Q4H PRN PRN Reason: PAIN Nystatin (Nystatin Oint*) 1 applic TOPICAL BID [facility] Last Admin: 07/04/16 12:16 Dose: 1 applic Oxycodone/Acetaminophen (Percocet 5/325 Tab*) 1 tab PO Q4H PRN PRN Reason: Pain Last Admin: 07/03/16 02:17 Dose: 1 tab Quetiapine Fumarate (Seroquel Tab*) 25 mg PO DAILY PRN PRN Reason: AGITATION Last Admin: 07/02/16 22:21 Dose: 25 mg Terazosin HCl (Hytrin Cap*) 5 mg PO BEDTIME [facility] Last Admin: 07/03/16 19:56 Dose: 5 mg Vital Signs 07/03/16 07/03/16 07/03/16 15:39 19:49 20:00 Temperature 97.5 F 97.7 F Pulse Rate 75 86 Respiratory 17 18 16 Rate Blood Pressure 143/79 147/80 (mmHg) O2 Sat by Pulse 96 96 Oximetry 07/03/16 07/04/16 07/04/16 23:51 03:15 08:00 Temperature 98.2 F 98.0 F Pulse Rate 84 75 Respiratory 20 20 18 Rate Blood Pressure 152/84 147/70 (mmHg) O2 Sat by Pulse 97 96 Oximetry 07/04/16 08:10 Temperature 98.4 F Pulse Rate 102 Respiratory 16 Rate Blood Pressure 106/57 (mmHg) O2 Sat by Pulse 97 Oximetry Oxygen Devices in Use Now: None Appearance: 86 yo M in nAd, aAOx3 Eyes: No Scleral Icterus, PERRLA Ears/Nose/Mouth/Throat: NL Teeth, Lips, Gums, Mucous Membranes Moist Neck: NL Appearance and Movements; NL JVP, Trachea Midline Respiratory: Symmetrical Chest Expansion and Respiratory Effort, Clear to Auscultation Cardiovascular: NL Sounds; No Murmurs; No JVD, RRR Abdominal: No Hepatosplenomegaly, - - soft, minimally tender in suprapubic area , no rebound, no guarding, BS+. Two IR drains: one anteriorly and one posterior placed. Bothwith serous drainage Extremities: No Clubbing, Cyanosis, - - +1 pedal pitting edema b/l Skin: No Nodules or Sclerosis Neurological: Alert and Oriented x 3, NL Muscle Strength and Tone Result Diagrams: 07/04/16 05:39 07/04/16 05:39 Additional Lab and Data: Lab Results 06/25/16 Range/Units 11:25 WBC 17.2 H (3.5-10.8) 10^3/ul RBC 4.47 (4.0-5.4) 10^6/ul Hgb 12.7 L (14.0-18.0) g/dl Hct 39 L (42-52) % MCV 86 (80-94) fL MCH 28 (27-31) pg MCHC 33 (31-36) g/dl RDW 15 (10.5-15) % Plt Count 168 (150-450) 10^3/ul MPV 9 (7.4-10.4) um3 Neut % (Auto) 89.5 H (38-83) % Lymph % (Auto) 3.6 L (25-47) % [place] % (Auto) 6.5 (1-9) % Eos % (Auto) 0.1 (0-6) % Baso % (Auto) 0.3 (0-2) % Absolute Neuts (auto) 15.4 H (1.5-7.7) 10^3/ul Absolute Lymphs (auto) 0.6 L (1.0-4.8) 10^3/ul Absolute Monos (auto) 1.1 H (0-0.8) 10^3/ul Absolute Eos (auto) 0 (0-0.6) 10^3/ul Absolute Basos (auto) 0.1 (0-0.2) 10^3/ul Absolute Nucleated RBC 0 10^3/ul Nucleated RBC % 0 Microbiology and Other Data: Microbiology 06/25/16 22:20 Nasal Screen MRSA (PCR)(NOBLE) - Final Nasal Mrsa Positive Assess/Plan/Problems-Billing Assessment: Mr. German is an 86 yo male with a PMH of CAD, stage 3 CKD, BPH, and Olson's esophagus who presented to the ED on 06/25/16 with abdominal pain that was found to be secondary to diverticulitis with associated perforation and early abscess. - Patient Problems (1) Diverticulitis of colon with perforation Comment: S/p percutaneous drain placement 06/26 (first drain ) and on 07/02/16 second drain) Appreciate surgical input Continue Zosyn . Cx growing strep anginosus and E. Coli(obtained from first drain) Continue IVF, pain management Will ask ID to see pt in consult (2) Atrial fibrillation with rapid ventricular response Comment: Loaded with digoxin and converted on Cardizem gtt within hours on -suspect related to hypokalemia. Lopressor started on 07/03/16 echo shows EF 55% spoke with pt about possiblity of anticoagulation if A. fib recurs. Pt stated that he has h/o easy bruisability and epistaxis and is not interested in " blood thiners". (3) CAD (coronary artery disease) Comment: Stable. Continue statin. (4) CKD (chronic kidney disease) stage 3, GFR 30-59 ml/min Comment: Creatinine within baseline. (5) BPH (benign prostatic hyperplasia) Comment: Continue terazosin. (6) DVT prophylaxis Comment: SQ lovenox Status and Disposition: Inpatient admission.
[2016-07-04] MEDS ORDERED: Potassium Chlor TAB* 20 MEQ TAB.ER PO ONE (14:54)
[2016-07-04] MEDS: cefTRIAXone VIAL(*) 1,000 MG in NS 0.9% 50 ML* 50 ML IVPB SCH (15:33)
[2016-07-04] MEDS: Enoxaparin(*) 40 MG/0.4 ML SYR SUBCUT SCH (17:52)
[2016-07-04] MEDS: metroNIDAZOLE TAB* 250 MG PO SCH (20:07)
[2016-07-04] MEDS: Temazepam CAP* 15 MG PO SCH (20:07)
[2016-07-04] MEDS: Terazosin CAP* 5 MG PO SCH (20:07)
[2016-07-04] MEDS: Atorvastatin* 10 MG TAB PO SCH (20:08)
[2016-07-04] MEDS: Calcium Carbonate CHEW TAB* 500 MG (TUMS) PO PRN (20:10)
--- NOTE | 2016-07-04 22:48 | CONS ---
CONSULTATION REPORT: DATE OF CONSULT: 07/04/16 REQUESTING PHYSICIAN: Sofy Ritchie MD CONSULTING SERVICE: Infectious Disease. REASON FOR CONSULT: Diverticulitis with abscess. IMPRESSION: 1. Diverticulitis with perforation and multiple abscesses, CT on June 26 showed a 3 x 5 cm abscess in the left paramedian supravesicular anterior pelvis and a drain was placed, grew Strep anginosus and E. coli, had worsening leukocytosis. Despite that drainage, another CT on the showed a rectovesical space abscess of 5 cm, which was drained also growing E. coli. White count coming down since then. He feels well. 2. Diarrhea since admission, a question due to ZOSYN side effect, characteristics not consistent with C. difficile diarrhea. 3. Allergy to SULFA antibiotics. 4. 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 5. Chronic kidney disease, stage 3. RECOMMENDATIONS: Stop ZOSYN. Start ceftriaxone 1 g IV daily. Start Flagyl 500 mg 3 times a day. He is going to have another CT scan of the abdomen and pelvis on Thursday. I suspect he will require long-term IV antibiotics for 3 to 4 weeks, but we will wait for the CT to confirm that. HISTORY OF PRESENT ILLNESS: This is an 86-year-old male with coronary disease admitted with fever, abdominal pain, found to have an abscess as described above on the and then on the , he had placement of a drain. Gram stain showed 4+ gram-positive cocci, 4+ gram-positive bacilli, 4+ gram-negative bacilli, and it grew E. coli and Strep anginosus, both pansensitive. He was getting better, then had worsening leukocytosis. The second abscess as above was identified. He had another drain placed on the . The abscess fluid showed 1+ gram-positive cocci and the Gram stain was growing E. coli, which is now resistant to cefazolin. He has had no fevers, chills, or sweats. His abdominal pain is slowly improving. He has had loose stools a few times a day since the day of admission, which he did not remember before he got to the hospital. He has had no blood in the stools. He did have a GI bleed back in the fall. PAST MEDICAL HISTORY: 1. History of GI bleed. 2. Coronary disease status post CABG. 3. Benign prostatic hypertrophy. 4. Stage 3 chronic kidney disease. 5. Olson esophagitis. MEDICATIONS: 1. Calcium. 2. Lipitor. 3. Enoxaparin. 4. Metoprolol. 5. Seroquel p.r.n. 6. Zosyn 3.375 g every 8 hours. 7. Vicodin. ALLERGIES: SULFA. FAMILY HISTORY: No recurrent infections. SOCIAL HISTORY: He is a retired design engineering manager. Lives at [place]. No travel. No sick contacts. REVIEW OF SYSTEMS: All negative except as noted above. PHYSICAL EXAM: Vital Signs: Temperature is 37, heart rate 100, respiratory rate 16, blood pressure 106/57, and O2 sat 97% on room air. In general, he is awake, in no distress. Neurologic: He is oriented x3. Follows all commands. Answers all questions. HEENT: There is no conjunctival hemorrhage. Oropharynx without lesions. Neck: Neck is supple without nuchal rigidity. Lymph nodes: There is no cervical, supraclavicular, inguinal, axillary, or epitrochlear lymphadenopathy. Heart: Regular and tachycardic without murmurs. Lungs: Clear to auscultation bilaterally. Abdomen: Soft, mildly distended. There are bowel sounds present. There is some anterior suprapubic drain and a posterior right buttock drain, both with cloudy fluid. No surrounding erythema. DIAGNOSTIC STUDIES/LAB DATA: White blood cell count 14,000 down from 20,000 yesterday; hemoglobin 11.4; and platelets 269. Creatinine 1.0. CRP 91 on the 24th. Please see impressions and recommendations as outlined above, which I have discussed with Dr. Ritchie. Thanks for asking me to see Mr. German in consultation. [id number]/[facility] #: [id number] [facility] SYSTEMRosita
[2016-07-05] MEDS: Metoprolol Tartrate TAB* 25 MG PO SCH ×2 (09:41→20:07)
[2016-07-05] MEDS: metroNIDAZOLE TAB* 250 MG PO SCH ×3 (09:42→20:04)
[2016-07-05] MEDS: Nystatin OINT* 15 GM TOPICAL SCH ×2 (09:44→20:15)
[2016-07-05] MEDS: cefTRIAXone VIAL(*) 1,000 MG in NS 0.9% 50 ML* 50 ML IVPB SCH (14:47)
--- NOTE | 2016-07-05 15:15 | PN ---
Subjective Date of Service: 07/05/16 Interval History: pt feels much better and stronger. Denies abd pain. diarrhea is resolving Telemetry shows short bursts of A.fib Family History: Unchanged from Admission Social History: Unchanged from Admission Past Medical History: Unchanged from Admission Objective Active Medications: Acetaminophen (Tylenol Tab*) 650 mg PO Q4H PRN PRN Reason: FEVER/PAIN Last Admin: 07/02/16 19:30 Dose: 650 mg Atorvastatin Calcium (Lipitor*) 10 mg PO BEDTIME [facility] PRN Reason: Protocol Last Admin: 07/04/16 20:08 Dose: 10 mg Calcium Carbonate (Tums*) 500 mg PO Q4H PRN PRN Reason: DISCOMFORT Last Admin: 07/04/16 20:10 Dose: 500 mg Enoxaparin Sodium (Lovenox(*)) 40 mg SUBCUT Q24H [facility] Last Admin: 07/04/16 17:52 Dose: 40 mg Ceftriaxone Sodium 1,000 mg/ (Sodium Chloride) 50 mls @ 200 mls/hr IVPB Q24H [facility] Last Admin: 07/05/16 14:47 Dose: 200 mls/hr Metoprolol Tartrate (Lopressor Tab*) 12.5 mg PO Q12HR [facility] Last Admin: 07/05/16 09:41 Dose: 12.5 mg Metronidazole (Flagyl Tab*) 500 mg PO TID [facility] Last Admin: 07/05/16 14:47 Dose: 500 mg Morphine Sulfate (Morphine Inj (Syringe)*) 2 mg IV Q4H PRN PRN Reason: PAIN Nystatin (Nystatin Oint*) 1 applic TOPICAL BID [facility] Last Admin: 07/05/16 09:44 Dose: 1 applic Oxycodone/Acetaminophen (Percocet 5/325 Tab*) 1 tab PO Q4H PRN PRN Reason: Pain Last Admin: 07/03/16 02:17 Dose: 1 tab Quetiapine Fumarate (Seroquel Tab*) 25 mg PO DAILY PRN PRN Reason: AGITATION Last Admin: 07/02/16 22:21 Dose: 25 mg Temazepam (Restoril Cap*) 15 mg PO BEDTIME [facility] Last Admin: 07/04/16 20:07 Dose: 15 mg Terazosin HCl (Hytrin Cap*) 5 mg PO BEDTIME [facility] Last Admin: 07/04/16 20:07 Dose: 5 mg Vital Signs 07/04/16 07/04/16 07/05/16 15:21 20:00 00:31 Temperature 98.0 F 97.4 F 98.1 F Pulse Rate 59 87 81 Respiratory 18 18 16 Rate Blood Pressure 161/83 149/87 131/78 (mmHg) O2 Sat by Pulse 94 96 97 Oximetry 07/05/16 07/05/16 07/05/16 04:48 07:49 08:00 Temperature 98.3 F 97.9 F Pulse Rate 65 95 Respiratory 16 16 18 Rate Blood Pressure 136/72 104/55 (mmHg) O2 Sat by Pulse 96 98 Oximetry Oxygen Devices in Use Now: None Appearance: 86 yo M in nAd, AAOx3 Eyes: No Scleral Icterus, PERRLA Ears/Nose/Mouth/Throat: NL Teeth, Lips, Gums, Mucous Membranes Moist Neck: NL Appearance and Movements; NL JVP, Trachea Midline Respiratory: Symmetrical Chest Expansion and Respiratory Effort, Clear to Auscultation Cardiovascular: NL Sounds; No Murmurs; No JVD, RRR Abdominal: NL Sounds; No Tenderness; No Distention, - - anterior JOHN drain draining purulent material, posterior drain with serosanquineus discharge Lymphatic: No Cervical Adenopathy Extremities: No Clubbing, Cyanosis, - - trace pedal edema b/l Skin: No Rash or Ulcers, No Nodules or Sclerosis Neurological: Alert and Oriented x 3, NL Muscle Strength and Tone Result Diagrams: 07/04/16 05:39 07/04/16 05:39 Additional Lab and Data: Lab Results 06/25/16 Range/Units 11:25 WBC 17.2 H (3.5-10.8) 10^3/ul RBC 4.47 (4.0-5.4) 10^6/ul Hgb 12.7 L (14.0-18.0) g/dl Hct 39 L (42-52) % MCV 86 (80-94) fL MCH 28 (27-31) pg MCHC 33 (31-36) g/dl RDW 15 (10.5-15) % Plt Count 168 (150-450) 10^3/ul MPV 9 (7.4-10.4) um3 Neut % (Auto) 89.5 H (38-83) % Lymph % (Auto) 3.6 L (25-47) % [place] % (Auto) 6.5 (1-9) % Eos % (Auto) 0.1 (0-6) % Baso % (Auto) 0.3 (0-2) % Absolute Neuts (auto) 15.4 H (1.5-7.7) 10^3/ul Absolute Lymphs (auto) 0.6 L (1.0-4.8) 10^3/ul Absolute Monos (auto) 1.1 H (0-0.8) 10^3/ul Absolute Eos (auto) 0 (0-0.6) 10^3/ul Absolute Basos (auto) 0.1 (0-0.2) 10^3/ul Absolute Nucleated RBC 0 10^3/ul Nucleated RBC % 0 Microbiology and Other Data: Microbiology 06/25/16 22:20 Nasal Screen MRSA (PCR)(NOBLE) - Final Nasal Mrsa Positive Assess/Plan/Problems-Billing Assessment: Mr. German is an 86 yo male with a PMH of CAD, stage 3 CKD, BPH, and Olson's esophagus who presented to the ED on 06/25/16 with abdominal pain that was found to be secondary to diverticulitis with associated perforation and early abscess. - Patient Problems (1) Diverticulitis of colon with perforation Comment: S/p percutaneous drain placement 06/26 (first drain ) and on 07/02/16 second drain) Appreciate surgical input re: management of intraabdominal abscesses Cx growing strep anginosus and E. Coli(obtained from first drain) appreciate ID consult. Zosyn switched to Ceftriaxone and Flagyl on 07/04/[address] on Thursday (2) Atrial fibrillation with rapid ventricular response Comment: Loaded with digoxin and converted on Cardizem gtt within hours on -suspect related to hypokalemia. Lopressor started on 07/03/16 echo shows EF 55% Telemtry still shows bursts of a. fib(short) spoke with pt about possiblity of anticoagulation. Pt stated that he has h/o easy bruisability and epistaxis and is not interested in "blood thiners". Risk of cardiomebolic CVA explained to pt and family present D/c telem (3) CAD (coronary artery disease) Comment: Stable. Continue statin. (4) CKD (chronic kidney disease) stage 3, GFR 30-59 ml/min Comment: Creatinine within baseline. (5) BPH (benign prostatic hyperplasia) Comment: Continue terazosin. (6) DVT prophylaxis Comment: SQ lovenox Status and Disposition: Inpatient admission.
[2016-07-05] MEDS: Enoxaparin(*) 40 MG/0.4 ML SYR SUBCUT SCH (17:57)
[2016-07-05] MEDS: Atorvastatin* 10 MG TAB PO SCH (20:05)
[2016-07-05] MEDS: Temazepam CAP* 15 MG PO SCH (20:05)
[2016-07-05] MEDS: Terazosin CAP* 5 MG PO SCH (20:05)
[2016-07-05] MEDS: Calcium Carbonate CHEW TAB* 500 MG (TUMS) PO PRN (20:05)
[2016-07-06] MEDS: metroNIDAZOLE TAB* 250 MG PO SCH ×3 (10:34→20:57)
[2016-07-06] MEDS: Metoprolol Tartrate TAB* 25 MG PO SCH ×2 (10:35→20:58)
[2016-07-06] MEDS: Nystatin OINT* 15 GM TOPICAL SCH ×2 (10:50→20:58)
--- NOTE | 2016-07-06 13:26 | PN ---
Subjective Date of Service: 07/06/16 Interval History: pt is tolerating soft diet. Stools are formed, no pain. Family History: Unchanged from Admission Social History: Unchanged from Admission Past Medical History: Unchanged from Admission Objective Active Medications: Acetaminophen (Tylenol Tab*) 650 mg PO Q4H PRN PRN Reason: FEVER/PAIN Last Admin: 07/02/16 19:30 Dose: 650 mg Atorvastatin Calcium (Lipitor*) 10 mg PO BEDTIME [facility] PRN Reason: Protocol Last Admin: 07/05/16 20:05 Dose: 10 mg Calcium Carbonate (Tums*) 500 mg PO Q4H PRN PRN Reason: DISCOMFORT Last Admin: 07/05/16 20:05 Dose: 500 mg Enoxaparin Sodium (Lovenox(*)) 40 mg SUBCUT Q24H [facility] Last Admin: 07/05/16 17:57 Dose: 40 mg Ceftriaxone Sodium 1,000 mg/ (Sodium Chloride) 50 mls @ 200 mls/hr IVPB Q24H [facility] Last Admin: 07/05/16 14:47 Dose: 200 mls/hr Metoprolol Tartrate (Lopressor Tab*) 12.5 mg PO Q12HR [facility] Last Admin: 07/06/16 10:35 Dose: 12.5 mg Metronidazole (Flagyl Tab*) 500 mg PO TID [facility] Last Admin: 07/06/16 10:34 Dose: 500 mg Morphine Sulfate (Morphine Inj (Syringe)*) 2 mg IV Q4H PRN PRN Reason: PAIN Nystatin (Nystatin Oint*) 1 applic TOPICAL BID [facility] Last Admin: 07/06/16 10:50 Dose: 1 applic Oxycodone/Acetaminophen (Percocet 5/325 Tab*) 1 tab PO Q4H PRN PRN Reason: Pain Last Admin: 07/03/16 02:17 Dose: 1 tab Quetiapine Fumarate (Seroquel Tab*) 25 mg PO DAILY PRN PRN Reason: AGITATION Last Admin: 07/02/16 22:21 Dose: 25 mg Temazepam (Restoril Cap*) 15 mg PO BEDTIME [facility] Last Admin: 07/05/16 20:05 Dose: 15 mg Terazosin HCl (Hytrin Cap*) 5 mg PO BEDTIME [facility] Last Admin: 07/05/16 20:05 Dose: 5 mg Vital Signs 07/05/16 07/05/1607/05/17 15:59 20:00 23:40 Temperature 97.3 F 97.3 F Pulse Rate 91 79 Respiratory 14 18 16 Rate Blood Pressure 113/65 128/64 (mmHg) O2 Sat by Pulse 98 97 Oximetry 07/06/16 07/06/16 07/06/16 00:26 01:13 04:57 Temperature 97.4 F 98.0 F Pulse Rate 81 82 Respiratory 16 16 Rate Blood Pressure 111/76 (mmHg) O2 Sat by Pulse 95 95 Oximetry 07/06/16 07/06/16 08:00 11:50 Temperature 97.5 F 97.9 F Pulse Rate 86 78 Respiratory 16 16 Rate Blood Pressure 120/67 119/74 (mmHg) O2 Sat by Pulse 97 98 Oximetry Oxygen Devices in Use Now: None Appearance: 86 yo M in nAd, AAOx3 Eyes: No Scleral Icterus, PERRLA Ears/Nose/Mouth/Throat: NL Teeth, Lips, Gums, Mucous Membranes Moist Neck: NL Appearance and Movements; NL JVP, Trachea Midline Respiratory: Symmetrical Chest Expansion and Respiratory Effort, Clear to Auscultation Cardiovascular: NL Sounds; No Murmurs; No JVD, RRR Abdominal: - - anterior and posterior abd drains with serous drainage noted Lymphatic: No Cervical Adenopathy Extremities: No Clubbing, Cyanosis, - - =1 pitting edema Skin: No Nodules or Sclerosis Neurological: Alert and Oriented x 3, NL Muscle Strength and Tone Result Diagrams: 07/04/16 05:39 07/04/16 05:39 Additional Lab and Data: Lab Results 06/25/16 Range/Units 11:25 WBC 17.2 H (3.5-10.8) 10^3/ul RBC 4.47 (4.0-5.4) 10^6/ul Hgb 12.7 L (14.0-18.0) g/dl Hct 39 L (42-52) % MCV 86 (80-94) fL MCH 28 (27-31) pg MCHC 33 (31-36) g/dl RDW 15 (10.5-15) % Plt Count 168 (150-450) 10^3/ul MPV 9 (7.4-10.4) um3 Neut % (Auto) 89.5 H (38-83) % Lymph % (Auto) 3.6 L (25-47) % [place] % (Auto) 6.5 (1-9) % Eos % (Auto) 0.1 (0-6) % Baso % (Auto) 0.3 (0-2) % Absolute Neuts (auto) 15.4 H (1.5-7.7) 10^3/ul Absolute Lymphs (auto) 0.6 L (1.0-4.8) 10^3/ul Absolute Monos (auto) 1.1 H (0-0.8) 10^3/ul Absolute Eos (auto) 0 (0-0.6) 10^3/ul Absolute Basos (auto) 0.1 (0-0.2) 10^3/ul Absolute Nucleated RBC 0 10^3/ul Nucleated RBC % 0 Microbiology and Other Data: Microbiology 06/25/16 22:20 Nasal Screen MRSA (PCR)(NOBLE) - Final Nasal Mrsa Positive Assess/Plan/Problems-Billing Assessment: Mr. German is an 86 yo male with a PMH of CAD, stage 3 CKD, BPH, and Olson's esophagus who presented to the ED on 06/25/16 with abdominal pain that was found to be secondary to diverticulitis with associated perforation and early abscess. - Patient Problems (1) Diverticulitis of colon with perforation Comment: S/p percutaneous drain placement 06/26 (first drain )-abscess measured 3x5 cm and on 07/02/16 (second drain, posteriorly) for a rectovesicular 5 cm abscess Appreciate surgical input re: management of intraabdominal abscesses Cx growing strep anginosus and E. Coli(obtained from first drain) appreciate ID consult. Zosyn switched to Ceftriaxone and Flagyl on 07/04/16. Most likely oil heaterman atibiotics will be needed. Will place in a consult for PICC in am. plan for repeat CT on Thursday (2) Atrial fibrillation with rapid ventricular response Comment: Loaded with digoxin and converted on Cardizem gtt within hours on -suspect related to hypokalemia. Lopressor started on 07/03/16 echo shows EF 55% Telemtry still showed bursts of a. fib(short) spoke with pt about possiblity of anticoagulation. Pt stated that he has h/o easy bruisability and epistaxis and is not interested in "blood thiners". Risk of cardiomebolic CVA explained to pt and family present Telemtry was discontinued on 07/05/16 (3) CAD (coronary artery disease) Comment: Stable. Continue statin. (4) CKD (chronic kidney disease) stage 3, GFR 30-59 ml/min Comment: Creatinine within baseline. (5) BPH (benign prostatic hyperplasia) Comment: Continue terazosin. (6) DVT prophylaxis Comment: SQ lovenox Status and Disposition: Inpatient admission.
[2016-07-06] MEDS: cefTRIAXone VIAL(*) 1,000 MG in NS 0.9% 50 ML* 50 ML IVPB SCH (15:24)
[2016-07-06] MEDS: Enoxaparin(*) 40 MG/0.4 ML SYR SUBCUT SCH (17:55)
[2016-07-06] MEDS: Terazosin CAP* 5 MG PO SCH (20:57)
[2016-07-06] MEDS: Temazepam CAP* 15 MG PO SCH (20:57)
[2016-07-06] MEDS: Atorvastatin* 10 MG TAB PO SCH (20:57)
[2016-07-07 06:30] LABS: Hematocrit 37 % (42-52); Mean Corpuscular HGB Conc 33 g/dl (31-36); Mean Corpuscular Hemoglobin 28 pg (27-31); Mean Corpuscular Volume 85 fL (80-94); Mean Platelet Volume 7 um3 (7.4-10.4); Red Blood Count 4.29 10^6/ul (4.0-5.4); Red Cell Distribution Width 16 % (10.5-15); White Blood Count 11.5 10^3/ul (3.5-10.8)
[2016-07-07] MEDS ORDERED: Iohexol 300* (CONTRAST) 10 ML SDV IV ONE (06:36)
[2016-07-07 06:54] LABS: C Reactive Protein 14.76 mg/L (< 5.00); Calcium 8.3 mg/dL (8.6-10.3); EGFR African American 84.7 (>60); EGFR Non-African American 65.8 (>60); Magnesium 1.9 mg/dL (1.9-2.7); Potassium 3.4 mmol/L (3.5-5.0)
--- NOTE | 2016-07-07 07:56 | RAD ---
CLINICAL HISTORY: Follow-up diverticular abscess COMPARISON: July 01, 2016 TECHNIQUE: Multiple contiguous axial CT scans were obtained of the abdomen and pelvis after the administration of intravenous contrast. Coronal and sagittal multiplanar reformations are submitted for review. Oral contrast was administered. Delayed images were obtained through the abdomen FINDINGS: The study is limited by patient motion artifact. LUNG BASES: There is moderate right and small left pleural effusion. There is associated compressive atelectasis of the lung bases bilaterally. LIVER: There are stable low-attenuation lesions most suggestive of hepatic cysts. BILE DUCTS: Again noted is mild ectasia of the common duct. GALLBLADDER: The gallbladder is normal, without pericholecystic inflammatory change. PANCREAS: Again noted is mild ectasia of the pancreatic duct. SPLEEN: Normal in size and appearance. UPPER GI TRACT: Evaluation of the gastrointestinal tract is limited by incomplete gastric distention. Again noted is a moderate-sized hiatal hernia. SMALL BOWEL AND MESENTERY: The small bowel is normal in contour, course, and caliber. There is no obstruction or dilatation. COLON: There is extensive diverticulosis of the colon most pronounced along the sigmoid colon. Again noted is a self locking drainage catheter within the left lower quadrant anteriorly. There is no appreciable residual abscess. There has been interval placement of a self locking drainage catheter within the right rectovesicular space without appreciable residual. ADRENALS: Normal bilaterally. KIDNEYS: The kidneys are normal in shape, size, contour, and axis. There is no hydronephrosis or nephrolithiasis. BLADDER: The bladder is smooth in contour. PELVIC ORGANS: The prostate is diffusely enlarged. The seminal vesicles are symmetric. AORTA: There is calcific atherosclerotic disease of the abdominal aorta and its branches, without aneurysmal dilatation IVC: Unremarkable LYMPH NODES: There is no lymphadenopathy by size criteria. ABDOMINAL WALL: There is no evidence for abdominal wall hernia. BONES AND SOFT TISSUES: There is a scoliotic curvature of the spine. Degenerative changes are noted along the spine OTHER: None IMPRESSION: 1. 2 DRAINAGE CATHETERS ARE NOTED WITHIN THE LEFT LOWER QUADRANT AND RIGHT HEMIPELVIS RESPECTIVELY. THERE IS NO APPRECIABLE RESIDUAL ABSCESS. 2. BILATERAL PLEURAL EFFUSIONS, RIGHT GREATER THAN LEFT. 3. EXTENSIVE DIVERTICULOSIS OF THE COLON. 4. ATHEROSCLEROSIS
[2016-07-07] MEDS: Metoprolol Tartrate TAB* 25 MG PO SCH ×2 (08:48→21:41)
[2016-07-07] MEDS: Nystatin OINT* 15 GM TOPICAL SCH ×2 (08:48→21:41)
[2016-07-07] MEDS: metroNIDAZOLE TAB* 250 MG PO SCH ×4 (08:48→21:44)
[2016-07-07] MEDS: Potassium Chlor TAB* 20 MEQ TAB.ER PO SCH ×2 (09:19→11:51)
--- NOTE | 2016-07-07 10:28 | PN ---
Progress Note - Progress Note SOAP: Subjective: DOS: 07/07/16 CC: abscess HPI: 86 year old man with diverticular abscess x2 and drain x2. Fever resolved. No abdominal pain, eating more. Loose/soft stools a few times per day. No rash. Had CT this morning and PICC placement. I reviewed the CT that shows 2 drains and resolution of collections. Objective: [] Vital Signs Temp 36.4 C 07/07/16 07:55 Pulse 65 07/07/16 07:55 Resp 16 07/07/16 07:55 BP 134/73 07/07/16 07:55 Pulse Ox 98 07/07/16 07:55 Intake & Output 07/06/16 07/07/16 07/07/16 18:59 06:59 18:59 Intake Total 907 460 270 Output Total 75 45 Balance 832 415 270 Weight 146 lb Intake: IVPB 57 ROCEPHIN 57 Oral 830 400 270 Pigtail Drain 20 60 Output: Pigtail Drain 75 45 Other: Estimated Void Small # Bowel Movements 0 # Voids 1 Gen:Awake, NAD Neuro:Ox3, answers all questions HEENT:PERRL, MMM Neck:supple LN; no visible or palpable LN Heart:RRR no murmur Lungs:CTA BL Abd:+BS NTND soft Skin: no rash anterior and posterior drains scant fluid Laboratory Results - last 24 hr 07/07/16 07/07/16 05:46 05:46 WBC 11.5 H RBC 4.29 Hgb 12.0 L Hct 37 L MCV 85 MCH 28 MCHC 33 RDW 16 H Plt Count 323 MPV 7 L Sodium 143 Potassium 3.4 L Chloride 114 H Carbon Dioxide 23 Anion Gap 6 BUN 16 Creatinine 1.07 Est GFR ( Amer) 84.7 Est GFR (Non-Af Amer) 65.8 BUN/Creatinine Ratio 15.0 Glucose 104 H Calcium 8.3 L Magnesium 1.9 C-Reactive Protein 14.76 H Assessment: 1. Left sided abscess and pevlic abscess, bowel natividad, due to perforated diverticulitis 2. sulfa allergy 3. diarrhea, abx side effect, improving 4. CAD 5. CKD, stage 3 Plan: 1. ceftriaxone 1 gm IV Q24hrs and flagyl 500 mg PO BID for 14 more days, weekly cbc, cmp, crp. Drain mgmt per surgery.
--- NOTE | 2016-07-07 11:56 | PN ---
Subjective Date of Service: 07/07/16 Interval History: Patient seen this morning. Reports feeling well. No abdominal pain, tolerating diet, no N/V. Moving bowels. 1 of 2 drains removed by surgery this morning. Has been ambulating. Family History: Unchanged from Admission Social History: Unchanged from Admission Past Medical History: Unchanged from Admission Objective Active Medications: Acetaminophen (Tylenol Tab*) 650 mg PO Q4H PRN Atorvastatin Calcium (Lipitor*) 10 mg PO BEDTIME [facility] Calcium Carbonate (Tums*) 500 mg PO Q4H PRN Enoxaparin Sodium (Lovenox(*)) 40 mg SUBCUT Q24H [facility] Heparin Sodium (Porcine) (Heparin Flush Picc/Ml/Cvc(*)) 1 - 3 ml FLUSH 0600, 1800 [facility] Ceftriaxone Sodium 1,000 mg/ (Sodium Chloride) 50 mls @ 200 mls/hr IVPB Q24H [facility] Metoprolol Tartrate (Lopressor Tab*) 12.5 mg PO Q12HR [facility] Metronidazole (Flagyl Tab*) 500 mg PO TID [facility] Morphine Sulfate (Morphine Inj (Syringe)*) 2 mg IV Q4H PRN Nystatin (Nystatin Oint*) 1 applic TOPICAL BID [facility] Oxycodone/Acetaminophen (Percocet 5/325 Tab*) 1 tab PO Q4H PRN Quetiapine Fumarate (Seroquel Tab*) 25 mg PO DAILY PRN Temazepam (Restoril Cap*) 15 mg PO BEDTIME [facility] Terazosin HCl (Hytrin Cap*) 5 mg PO BEDTIME [facility] Vital Signs 07/06/16 07/06/16 07/06/16 16:44 19:51 20:00 Temperature 98.3 F 97.7 F Pulse Rate 64 92 Respiratory 18 14 14 Rate Blood Pressure 161/75 123/75 (mmHg) O2 Sat by Pulse 98 96 Oximetry 07/06/16 07/07/16 07/07/16 23:47 07:32 07:37 Temperature 97.8 F Pulse Rate 67 Respiratory 17 16 16 Rate Blood Pressure 127/77 (mmHg) O2 Sat by Pulse 95 Oximetry 07/07/16 07:55 Temperature 97.6 F Pulse Rate 65 Respiratory 16 Rate Blood Pressure 134/73 (mmHg) O2 Sat by Pulse 98 Oximetry Oxygen Devices in Use Now: None Appearance: Elderly, M, laying in bed in NAD Eyes: No Scleral Icterus Ears/Nose/Mouth/Throat: Mucous Membranes Moist Neck: NL Appearance and Movements; NL JVP Respiratory: Symmetrical Chest Expansion and Respiratory Effort, Clear to Auscultation Cardiovascular: NL Sounds; No Murmurs; No JVD, RRR Abdominal: NL Sounds; No Tenderness; No Distention, - - posterior drain in place , minimal drainage Lymphatic: No Cervical Adenopathy Extremities: - - B/L LE pitting edema to below knees Skin: No Rash or Ulcers Neurological: Alert and Oriented x 3 Lines/Tubes/Other Access: Clean, Dry and Intact PICC Line Result Diagrams: 07/07/16 05:46 07/07/16 05:46 Additional Lab and Data: Microbiology and Other Data: Assess/Plan/Problems-Billing Assessment: Mr. German is an 86 yo male with a PMH of CAD, stage 3 CKD, BPH, and Olson's esophagus who presented to the ED on 06/25/16 with abdominal pain that was found to be secondary to diverticulitis with associated perforation and early abscess , subsequently required drain placement x 2 for abscesses - Patient Problems (1) Diverticulitis of colon with perforation Current Visit: Yes Comment: S/p percutaneous drain placement 06/26 (first drain )-abscess measured 3x5 cm and on 07/02/16 (second drain, posteriorly) for a rectovesicular 5 cm abscess Appreciate surgical input re: management of intraabdominal abscesses Cx growing strep anginosus and E. Coli(obtained from first drain) appreciate ID consult. Zosyn switched to Ceftriaxone and Flagyl on 07/04/16. Plan for 14 additional days of IV CTX and oral Flagyl Repeat CT scan on 07/07 shows no residual collections (2) Atrial fibrillation with rapid ventricular response Current Visit: Yes Comment: Loaded with digoxin and converted on Cardizem gtt within hours on 07/02/16-suspect related to hypokalemia. Lopressor started on 07/03/16 echo shows EF 55% Telemtry still showed bursts of a. fib(short) Dr. Ritchie spoke with pt about possiblity of anticoagulation. Pt stated that he has h/o easy bruisability and epistaxis and is not interested in "blood thiners ". Risk of cardiomebolic CVA explained to pt and family present Telemtry was discontinued on 1/28/17 (3) CAD (coronary artery disease) Current Visit: Yes Comment: Stable. Continue statin. (4) CKD (chronic kidney disease) stage 3, GFR 30-59 ml/min Current Visit: No Comment: Creatinine within baseline. (5) BPH (benign prostatic hyperplasia) Current Visit: Yes Comment: Continue terazosin. (6) DVT prophylaxis Current Visit: No Comment: SQ lovenox Status and Disposition: Inpatient admission. Possible d/c in next 24-48 hours
[2016-07-07] MEDS: cefTRIAXone VIAL(*) 1,000 MG in NS 0.9% 50 ML* 50 ML IVPB SCH (15:32)
[2016-07-07] MEDS: oxyCODONE/Acetamin 5/325 MG* TAB PO PRN (16:16)
--- NOTE | 2016-07-07 16:40 | PN ---
Progress Note - Progress Note Note: Surgery Progress: S: Seen earlier. Denies abd pain. O: afeb; VSS drainage output min, though difficult to tell from I/O Abd: soft, nontender CT this a.m.: shows resolution of both abscesses anterior drain removed earlier w/o incident; DSD placed. posterior drain removed ~ 1430; wound bled upon removal of catheter; hemostasis obtained w/ direct pressure; DSD placed; nsg informed A/P: s/p perc drainage of intra-abd and pelvic abscesses r/t acute diverticulitis, improved by all clinical parameters; abx per medicine and ID; office f/u w/ surgery in 2 wks.
[2016-07-07] MEDS: Enoxaparin(*) 40 MG/0.4 ML SYR SUBCUT SCH (17:21)
[2016-07-07] MEDS: Terazosin CAP* 5 MG PO SCH (21:40)
[2016-07-07] MEDS: Temazepam CAP* 15 MG PO SCH (21:41)
[2016-07-07] MEDS: Atorvastatin* 10 MG TAB PO SCH (21:41)
[2016-07-08 04:52] LABS: Hematocrit 33 % (42-52); Hemoglobin 10.8 g/dl (14.0-18.0); Mean Corpuscular HGB Conc 33 g/dl (31-36); Mean Corpuscular Hemoglobin 28 pg (27-31); Mean Corpuscular Volume 86 fL (80-94); Mean Platelet Volume 7 um3 (7.4-10.4); Red Blood Count 3.89 10^6/ul (4.0-5.4); Red Cell Distribution Width 15 % (10.5-15); White Blood Count 11.5 10^3/ul (3.5-10.8)
[2016-07-08 04:58] LABS: Add Diff/Slide Review? Slide Review Added; Comments Flag Yes
[2016-07-08 05:02] LABS: BUN/Creatinine Ratio 15.9 (8-20); EGFR African American 84.7 (>60); EGFR Non-African American 65.8 (>60); Potassium 3.6 mmol/L (3.5-5.0)
[2016-07-08] MEDS: Metoprolol Tartrate TAB* 25 MG PO SCH (07:40)
[2016-07-08] MEDS: metroNIDAZOLE TAB* 250 MG PO SCH ×2 (07:40→12:07)
[2016-07-08] MEDS: Acetaminophen TAB* 325 MG PO PRN (07:45)
[2016-07-08] MEDS: Nystatin OINT* 15 GM TOPICAL SCH (07:46)
[2016-07-08 07:53] VITALS: BP 126/69
--- NOTE | 2016-07-08 09:40 | DCNOTE ---
Patient feeling well today. Had some cramping in the legs yesterday after the drain pulled but this resolved. Appetite is not great but picking up, no abdominal pain. Moving bowels. On exam, RRR, s1 and s2 present, no m/g/r, abd soft, NTND, BS+, B/L LE edema D/C to SNF to complete ABx (IV CTX and PO Flagyl x 14 days). F/U with surgery at 2 weeks
--- NOTE | 2016-07-08 11:52 | DS ---
DATE OF ADMISSION: 06/25/2016. DATE OF DISCHARGE: 07/08/2016. PRIMARY CARE PHYSICIAN: Dr. Jennings. CONSULTANTS DURING HOSPITALIZATION: Dr. Noam Goncalves, Surgery; Dr. Phi Casey, Interventional Radiology. PRINCIPAL DISCHARGE DIAGNOSIS: Perforated diverticulitis with abscess. SECONDARY DIAGNOSES: 1. Coronary artery disease, status post CABG. 2. Chronic kidney disease, stage 3. 3. Benign prostatic hypertrophy. 4. Olson's esophagus. DISCHARGE MEDICATIONS: 1. Tylenol 650 mg by mouth every 4 hours as needed for pain. 2. Calcium carbonate 500 mg by mouth every 4 hours as needed for indigestion. 3. Metoprolol tartrate 12.5 mg by mouth two times daily. 4. Seroquel 25 mg by mouth daily as needed for agitation. 5. Ceftriaxone 1 gm IV daily. 6. Flagyl 500 mg by mouth two times daily. 7. Indomethacin 50 mg by mouth two times daily as needed for pain. 8. Terazosin 5 mg by mouth at bedtime. 9. Pravastatin 40 mg by mouth at bedtime. 10. Calcium plus vitamin D one tablet by mouth daily. STUDIES DONE DURING HOSPITALIZATION: 1. CT abdomen and pelvis, 06/25/2016: Impression: The constellation of findings is most consistent with acute sigmoid diverticulitis with perforation and early perienteric abscess, as well as associated reactive inflammation of an adjacent small bowel loop. No resulting bowel obstruction. 2. Repeat CT scan, 06/26/2016: Impression: Successful CT and ultrasound guided anterior left lower quadrant peritoneal abscess pigtail catheter drainage. 3. Repeat CT scan, 07/01/2016: There has been interval development of a loculated fluid collection within the recto-vesicular space measuring approximately 5.6 cm in size consistent with abscess. Nasal locking drainage catheter is noted in the anterior aspect of the left lower quadrant without appreciable residual abscess in this location. Bilateral pleural effusions with bibasilar atelectasis. 4. Repeat CT scan, 07/02/2016: Uncomplicated CT guided right transgluteal pelvic abscess drain placement. 5. Transthoracic echocardiogram: Conclusion: Normal left ventricular chamber size. Global left ventricular wall motion and contractility are within normal limits. Ejection fraction of 50 to 55 percent. Right ventricular global systolic function is mildly reduced. Borderline aortic stenosis. Mitral annular calcification. Mild mitral regurgitation. Pleural effusion. 6. CT abdomen and pelvis, 07/07/2016: Impression: Two drainage catheters are noted within the left lower quadrant and right hemipelvis respectively. There is no appreciable residual abscess. Bilateral pleural effusions, right greater than left. Extensive diverticulosis of the colon. Atherosclerosis. HISTORY OF PRESENT ILLNESS AND HOSPITAL SUMMARY: Please see the full history and physical by DONAVON Peters for full details. Briefly, Mr. German is an 86-year- old man with a past medical history as above who presented to the hospital with abdominal pain. As noted above, CT scan showed acute diverticulitis with associated perforation and abscess formation. Surgery was consulted and continued to follow. The patient was placed on IV antibiotics. He subsequently had a drain placed which was successful in draining the initial abscess. Over the following days, his symptoms improved; however, he had an acute increase in his white blood cell count from 13 to 32. Subsequent re- imaging of the abdomen showed a new abscess in the pelvic area. A second drain was placed on 07/02/2016. The patient had repeat imaging done on 07/07/2016 as noted above that shows complete resolution of the abscesses. Surgery continued to follow and removed the patient's drains on 07/07/2016. He continued to do well. He was tolerating a diet with no abdominal pain and moving his bowels normally. Dr. Hamilton of Infectious Disease consulted who recommended IV antibiotics for two weeks of Ceftriaxone, in addition to oral Flagyl for two weeks. [facility]. Total time spent on this discharge was 45 minutes. This is a summary of the hospitalization, please see the full medical record for further details. CC: Dr. Jennings; Dr. Noam Goncalves* [id number]/[facility] #: [id number] [facility]
[2016-07-08] MEDS: cefTRIAXone VIAL(*) 1,000 MG in NS 0.9% 50 ML* 50 ML IVPB SCH ×2 (12:07→13:42)
== END 2016-07-08 13:44 | disposition home health service (06) | DRG 392 ==
LOC: ED 10:22 → MED 19:03 → MEDTELE 07-02 13:54
PROVIDERS: ADMIT Internal Medicine; ATTEND Hospitalist
PROC: 0W9G30Z Drainage of Peritoneal Cavity with Drainage Device, Percutaneous Approach (ICD-10-PCS; 2016-06-26)
PROC: 0W9J30Z Drainage of Pelvic Cavity with Drainage Device, Percutaneous Approach (ICD-10-PCS; principal; 2016-07-02)
PROC: 02HV33Z Insertion of Infusion Device into Superior Vena Cava, Percutaneous Approach (ICD-10-PCS; 2016-07-07)
DX: K57.20 Diverticulitis of large intestine with perforation and abscess without bleeding (principal); K52.1 Toxic gastroenteritis and colitis; N18.3 Chronic kidney disease, stage 3 (moderate); I50.9 Heart failure, unspecified; E86.0 Dehydration; I48.91 Unspecified atrial fibrillation; K22.70 Barrett's esophagus without dysplasia; E78.5 Hyperlipidemia, unspecified; I25.10 Atherosclerotic heart disease of native coronary artery without angina pectoris; N40.0 Benign prostatic hyperplasia without lower urinary tract symptoms; K21.9 Gastro-esophageal reflux disease without esophagitis; R00.0 Tachycardia, unspecified; E87.6 Hypokalemia; T36.0X5A Adverse effect of penicillins, initial encounter; R60.0 Localized edema; R25.2 Cramp and spasm; Z95.1 Presence of aortocoronary bypass graft; Z87.891 Personal history of nicotine dependence; Z88.2 Allergy status to sulfonamides; Z86.73 Personal history of transient ischemic attack (TIA), and cerebral infarction without residual deficits; Z72.89 Other problems related to lifestyle
CPT/HCPCS: 36415; 49406; 74176; 74177; 80048; 80053; 81003; 81015; 82150; 83605; 83690; 83735; 84134; 84484; 85025; 85027; 85610; 85730; 86140; 86141; 87045; 87046; 87070; 87077; 87186; 87205; 87640; 87641; 87899; 93005; 93306; 96374; 99212; 99284; A9270-GY; C1751; C1769; G0463; J0696; J1160; J1170; J1650; J2250; J2270; J2310; J2543; J3010; J3475; J3480; Q9967

== ENCOUNTER 2016-11-01 20:03 | Emergency (ER) | payer MEDICARE, BC ==
[2016-11-01 20:23] VITALS: BP 120/75
--- NOTE | 2016-11-01 20:54 | UC ---
Ear Complaint HPI - HPI Summary HPI Summary: POSSIBLE HEARING AID BUD IN RIGHT EAR. NO FB SENSATION IN EAR, BUT COULD NOT FIND PART WHEN TOOK IT OUT OF THE BOX, CONCERN THAT THE PIECE MAY BE IN HIS EAR. - History of Current Complaint Chief Complaint: UCEar Stated Complaint: FB EAR Time Seen by Provider: 11/01/16 20:39 Hx Obtained From: Patient Onset/Duration: Sudden Onset, Lasting Hours, Still Present Severity Initially: Mild Severity Currently: None Aggravating Factors: Nothing Alleviating Factors: Nothing Associated Signs/Symptoms: Negative: Foreign Body Sensation, Trauma to Ear, URI Symptoms - Allergies/Home Medications Allergies/Adverse Reactions: Allergies Allergy/AdvReac Type Severity Reaction Status Date / Time Sulfa Antibiotics Allergy Severe Swelling Verified 11/01/16 20:23 PMH/Surg Hx/FS Hx/Imm Hx Previously Healthy: Yes Endocrine History Of: Denies: Diabetes, Thyroid Disease Cardiovascular History Of: Reports: Congestive Heart Failure - Has resolved with aortic valve repair Denies: Cardiac Disorders, Hypertension Respiratory History Of: Denies: COPD, Asthma GI/ History Of: Denies: Ulcer, Renal Disease Neurological History Of: Reports: TIA - 20 years ago - Surgical History Surgical History: Yes Surgery Procedure, Year, and Place: 1997 Open heart aortic valve repair - Family History Known Family History: Negative: Cardiac Disease, Hypertension, Diabetes - Social History Occupation: Retired Lives: With Family Alcohol Use: None Substance Use Type: None Smoking Status (MU): Former Smoker Type: Cigarettes When Did the Patient Quit Smoking/Using Tobacco: - Immunization History Most Recent Influenza Vaccination: This 15- Most Recent Tetanus Shot: UNK Most Recent Pneumonia Vaccination: Has had, UNK year Review of Systems Constitutional: Negative Skin: Negative Eyes: Negative ENT: Other - POSSIBLE FB IN RIGHT EAR Respiratory: Negative Cardiovascular: Negative Gastrointestinal: Negative Genitourinary: Negative Motor: Negative Neurovascular: Negative Musculoskeletal: Negative Neurological: Negative Psychological: Negative All Other Systems Reviewed And Are Negative: Yes Physical Exam Triage Information Reviewed: Yes Appearance: Well-Appearing, No Pain Distress, Well-Nourished Vital Signs: Initial Vital Signs Temp 97.2 F 11/01/16 20:20 Pulse 72 11/01/16 20:20 Resp 18 11/01/16 20:20 BP 120/75 11/01/16 20:20 Pulse Ox 96 05/27/17 20:20 Vital Signs Reviewed: Yes Eye Exam: Normal ENT: Positive: Hearing grossly normal, Pharynx normal, TMs normal, Other: - NO FB VISUALIZED Dental Exam: Normal Neck exam: Normal Respiratory Exam: Normal Respiratory: Positive: Chest non-tender, Lungs clear, Normal breath sounds, No respiratory distress, No accessory muscle use Cardiovascular Exam: Normal Cardiovascular: Positive: RRR, No Murmur, Pulses Normal, Brisk Capillary Refill Abdominal Exam: Normal Musculoskeletal Exam: Normal Neurological Exam: Normal Psychological Exam: Normal Skin Exam: Normal Ear Complaint Course/Dx - Differential Dx/Diagnosis Differential Diagnosis/HQI/PQRI: Foreign Body, Otitis Externa, Otitis Media, URI Provider Diagnoses: NORMAL EXAM, NO FOREIGN BODY VISUALIZED IN EAC Discharge - Discharge Plan Condition: Stable Disposition: HOME Patient Education Materials: Ear Foreign Body (ED), Normal Exam (ED) Referrals: Gadiel Jennings MD [Primary Care Provider] -
== END 2016-11-01 20:58 | disposition home or self-care (01) ==
LOC: UCEAST 20:03
DX: Z71.1 Person with feared health complaint in whom no diagnosis is made (principal); Z86.73 Personal history of transient ischemic attack (TIA), and cerebral infarction without residual deficits; Z88.2 Allergy status to sulfonamides; Z87.891 Personal history of nicotine dependence
CPT/HCPCS: 99211; G0463